=== PATIENT | female | born 1930 | race Hispanic/Latino ===

== ENCOUNTER 2017-09-11 11:21 | Emergency (ER) | payer OTHER, MEDICARE ==
[~2017-09-11 11:21] MED LIST: AEC81 PO; ASPI-555 PO; CARV6.25 PO; FURO20TA4 PO; LEVO50 PO; LEVO500T2 PO; LOSA100T29 PO; MELO-106 PO; METF10004 PO; METO-409 PO; OMEP20CA10 PO; PANT40TA25 PO; SIMV40TA59 PO; SOLI5 PO
[2017-09-11] MEDS ORDERED: ONDANSETRON ODT 4 MG TAB ONE (11:37)
[2017-09-11] MEDS ORDERED: MORPHINE SULFATE 4 MG/1ML SYG ONE (11:38)
== END 2017-09-11 12:56 | disposition home or self-care (01) ==
LOC: EDH 11:21
DX: S30.0XXA Contusion of lower back and pelvis, initial encounter (principal); S09.90XA Unspecified injury of head, initial encounter; E78.5 Hyperlipidemia, unspecified; I25.10 Atherosclerotic heart disease of native coronary artery without angina pectoris; E11.9 Type 2 diabetes mellitus without complications; I10 Essential (primary) hypertension; Z98.890 Other specified postprocedural states; W18.39XA Other fall on same level, initial encounter; Y93.01 Activity, walking, marching and hiking; Y92.89 Other specified places as the place of occurrence of the external cause; Y99.8 Other external cause status
CPT/HCPCS: 70450; 72125; 72128; 72131; 96372; 99284; J2270

== ENCOUNTER 2017-09-13 03:57 | Inpatient (IN) | payer OTHER, MEDICARE ==
[~2017-09-13] VITALS: Ht 162.6 cm
[2017-09-13 04:34] LABS: BASOPHILS % (AUTO) 0.8 % (0.0-5.0); EOSINOPHILS % (AUTO) 0.1 % (0.0-8.0); HEMATOCRIT 30.9 % (36-48); LYMPHOCYTES % (AUTO) 18.9 % (21.0-51.0); MEAN CORPUSCULAR HEMOGLOBIN 32.1 pg (27.0-33.0); MEAN CORPUSCULAR HGB CONC 33.5 g/dL (32.0-36.0); MEAN CORPUSCULAR VOLUME 95.7 fL (79-99); MONOCYTES % (AUTO) 6.5 % (3.0-13.0); NEUTROPHILS % (AUTO) 73.7 % (40.0-77.0); PLATELET COUNT (AUTO) 353 K/uL (130-400); RED BLOOD CELL COUNT(AUTO) 3.23 MIL/uL (4.00-5.50); RED CELL DISTRIBUTION WIDTH 14.9 % (11.0-15.5); WHITE BLOOD COUNT (AUTO) 13.3 K/uL (4.8-10.8)
[2017-09-13 04:35] LABS: APPEARANCE,URINE Clear (CLEAR); BILIRUBIN,URINE Negative (NEGATIVE); COLOR,URINE Yellow (YELLOW); GLUCOSE, URINE (UA) Negative (NEGATIVE); KETONES,URINE Negative (NEGATIVE); LEUKOCYTE ESTERASE ,URINE Trace (NEGATIVE); NITRATE,URINE Negative (NEGATIVE); OCCULT BLOOD,URINE Negative (NEGATIVE); PH,URINE 5.5 (5.0-8.0); PROTEIN,URINE POS 1+ (NEGATIVE); UROBILINOGEN,URINE 0.2 mg/dL (0.2-1.0)
[2017-09-13 04:38] LABS: ACETONE,BLOOD NEGATIVE (NEGATIVE)
[2017-09-13 04:42] LABS: BACTERIA,URINE Rare /HPF (None Seen); CREATININE 5.4 mg/dL (0.5-1.5); MUCUS,URINE Moderate LPF (None Seen); POTASSIUM 5.4 mmol/L (3.5-5.1); RBC,URINE None Seen /HPF (0-1); RENAL EPITHELIAL CELLS,URINE Moderate /HPF (None Seen); SQUAMOUS EPITHELIAL CELL,UR Many /HPF (0-2); TRANSITIONAL EPI CELLS,URINE Moderate /HPF (None Seen); WBC,URINE 0-1 /HPF (0-1)
[2017-09-13 04:46] LABS: INR 1.03 (0.85-1.15); PARTIAL THROMBOPLASTIN TIME 23.9 SEC (26.3-35.5); PROTHROMBIN TIME 10.8 SEC (9.6-11.6)
[2017-09-13 04:47] LABS: ALBUMIN 3.2 g/dL (3.5-5.0); BILIRUBIN,TOTAL 0.3 mg/dL (0.2-1.0); TOTAL PROTEIN, SERUM 7.4 g/dL (6.0-8.3)
[2017-09-13 05:02] LABS: CREATINE KINASE MB 5.5 ng/mL (0.5-3.6); CREATINE KINASE, TOTAL 215 U/L (21-232)
[2017-09-13] MEDS ORDERED: ONDANSETRON HCL MDV 20ML 2 MG/ML VIAL ONE (07:38)
[2017-09-13] MEDS ORDERED: DiphenhydrAMINE HCL 50 MG/ML VIAL IVP PRN (09:45)
[2017-09-13] MEDS ORDERED: ZOLPIDEM TARTRATE 5 MG TAB PO PRN (09:45)
[2017-09-13] MEDS ORDERED: POTASSIUM CHLORIDE 20MEQ/100ML 100 ML IV PRN (09:45)
[2017-09-13] MEDS ORDERED: LIDOCAINE HCL-MPF 1% 2ML VIAL IJ PRN (09:45)
[2017-09-13] MEDS ORDERED: GLUCAGON 1MG KIT 1 MG ML IM PRN (09:45)
[2017-09-13] MEDS ORDERED: DIPHENHYDRAMINE HCL 25 MG CAPSULE PO PRN (09:45)
[2017-09-13] MEDS ORDERED: ONDANSETRON HCL 4 MG/2 ML VIAL IVP PRN (09:45)
[2017-09-13] MEDS ORDERED: NITROGLYCERIN 0.4 MG SL TAB SL PRN (09:45)
[2017-09-13] MEDS ORDERED: GUAIFENESIN-DM 200/20 MG 10 ML PO PRN (09:45)
[2017-09-13] MEDS ORDERED: MAG HYDROX/AL HYDROX/SIMETH ES 30 ML SUSP UDCUP PO PRN (09:45)
[2017-09-13] MEDS ORDERED: DEXTROSE 50%-WATER 50 ML DISP.SYRIN IV PRN (09:45)
[2017-09-13] MEDS ORDERED: POTASSIUM CHLORIDE 10% ELIXIR 20 MEQ/15 ML UDCUP PO PRN (09:45)
[2017-09-13] MEDS ORDERED: ACETAMINOPHEN 325 MG TAB PO PRN ×2 (09:45)
[2017-09-13 09:55] VITALS: BP 98/31
[2017-09-13] MEDS ORDERED: ONDANSETRON HCL MDV 20ML 2 MG/ML VIAL IVP PRN (10:25)
[2017-09-13] MEDS: INSULIN R PO SSI SQ SCH ×3 (10:39→20:13)
[2017-09-13] MEDS: SODIUM CHLORIDE 0.9% 1000ML 1,000 ML IV SCH ×2 (10:45→22:31)
[2017-09-13] MEDS: PANTOPRAZOLE SODIUM 40 MG TABLET.DR PO SCH (10:51)
[2017-09-13] MEDS ORDERED: SULF1TAB42 PO (10:56)
[2017-09-13] MEDS ORDERED: ESCI10TA54 PO (10:56)
[2017-09-13] MEDS ORDERED: LISI40TA4 PO (10:56)
[2017-09-13] MEDS ORDERED: SIMV20TA6 PO (10:56)
[2017-09-13] MEDS ORDERED: FOLI1TAB15 PO (10:56)
[2017-09-13 12:30] LABS: ALBUMIN 2.8 g/dL (3.5-5.0); BILIRUBIN,TOTAL 0.3 mg/dL (0.2-1.0); CREATININE 5.2 mg/dL (0.5-1.5); POTASSIUM 5.1 mmol/L (3.5-5.1); TOTAL PROTEIN, SERUM 6.5 g/dL (6.0-8.3)
[2017-09-13 16:00] VITALS: BP 103/43
[2017-09-13 19:43] VITALS: BP 100/50
[2017-09-13 23:41] VITALS: BP 95/51
[2017-09-14 03:56] LABS: BASOPHILS % (AUTO) 0.6 % (0.0-5.0); EOSINOPHILS % (AUTO) 0.3 % (0.0-8.0); HEMATOCRIT 26.1 % (36-48); LYMPHOCYTES % (AUTO) 16.6 % (21.0-51.0); MEAN CORPUSCULAR HEMOGLOBIN 33.6 pg (27.0-33.0); MEAN CORPUSCULAR HGB CONC 35.5 g/dL (32.0-36.0); MEAN CORPUSCULAR VOLUME 94.6 fL (79-99); MONOCYTES % (AUTO) 7.3 % (3.0-13.0); NEUTROPHILS % (AUTO) 75.2 % (40.0-77.0); PLATELET COUNT (AUTO) 302 K/uL (130-400); RED BLOOD CELL COUNT(AUTO) 2.76 MIL/uL (4.00-5.50); WHITE BLOOD COUNT (AUTO) 9.6 K/uL (4.8-10.8)
[2017-09-14 03:58] VITALS: BP 109/51
[2017-09-14] MEDS: INSULIN R PO SSI SQ SCH ×4 (06:35→21:00)
[2017-09-14] MEDS: PANTOPRAZOLE SODIUM 40 MG TABLET.DR PO SCH (06:39)
[2017-09-14 08:00] VITALS: BP 114/51
[2017-09-14] MEDS: SODIUM CHLORIDE 0.9% 1000ML 1,000 ML IV SCH ×2 (08:45→18:49)
[2017-09-14] MEDS: GUAIFENESIN SUGAR-FREE 100 MG/5 ML UDCUP PO PRN (10:52)
[2017-09-14 11:33] VITALS: BP 133/62
[2017-09-14 12:19] LABS: ALBUMIN 2.7 g/dL (3.5-5.0); BILIRUBIN,TOTAL 0.2 mg/dL (0.2-1.0); CREATININE 5.7 mg/dL (0.5-1.5); POTASSIUM 4.9 mmol/L (3.5-5.1); TOTAL PROTEIN, SERUM 6.2 g/dL (6.0-8.3)
[2017-09-14] MEDS: LACTULOSE 20 GM/30 ML UDCUP PO PRN (13:50)
[2017-09-14 16:00] VITALS: BP 134/59
[2017-09-14 19:48] VITALS: BP 129/66
[2017-09-14 23:31] VITALS: BP 110/52
[2017-09-15 03:19] VITALS: BP 116/58
[2017-09-15 04:30] LABS: HEMATOCRIT 25.6 % (36-48); MEAN CORPUSCULAR HEMOGLOBIN 31.9 pg (27.0-33.0); MEAN CORPUSCULAR HGB CONC 33.9 g/dL (32.0-36.0); PLATELET COUNT (AUTO) 289 K/uL (130-400); RED BLOOD CELL COUNT(AUTO) 2.72 MIL/uL (4.00-5.50); RED CELL DISTRIBUTION WIDTH 14.8 % (11.0-15.5)
[2017-09-15 05:01] LABS: CREATININE 5.3 mg/dL (0.5-1.5); MAGNESIUM 1.5 mg/dL (1.80-2.40); PHOSPHORUS 5.9 mg/dL (2.5-4.9); POTASSIUM 4.3 mmol/L (3.5-5.1); URIC ACID 9.5 mg/dL (2.6-7.2)
[2017-09-15 05:14] LABS: % IRON SATURATION 45.5 % (22-44)
[2017-09-15] MEDS: SODIUM CHLORIDE 0.9% 1000ML 1,000 ML IV SCH ×2 (05:18→08:49)
[2017-09-15] MEDS: PANTOPRAZOLE SODIUM 40 MG TABLET.DR PO SCH (05:35)
[2017-09-15] MEDS: INSULIN R PO SSI SQ SCH ×4 (06:05→21:00)
[2017-09-15 08:00] VITALS: BP 123/54
[2017-09-15] MEDS ORDERED: IPRATROPIUM/ALBUTEROL SULFATE 3 ML SOLUTION IH SCH (10:15)
[2017-09-15] MEDS: IPRATROPIUM/ALBUTEROL SULFATE 3 ML SOLUTION IH SCH ×3 (11:17→23:47)
[2017-09-15 11:39] VITALS: BP 137/67
[2017-09-15 13:16] LABS: APPEARANCE,URINE Clear (CLEAR); BILIRUBIN,URINE Negative (NEGATIVE); COLOR,URINE Yellow (YELLOW); GLUCOSE, URINE (UA) Negative (NEGATIVE); KETONES,URINE Negative (NEGATIVE); LEUKOCYTE ESTERASE ,URINE Negative (NEGATIVE); NITRATE,URINE Negative (NEGATIVE); OCCULT BLOOD,URINE Negative (NEGATIVE); PROTEIN,URINE Trace (NEGATIVE); UROBILINOGEN,URINE 0.2 mg/dL (0.2-1.0)
[2017-09-15 13:28] LABS: BACTERIA,URINE Rare /HPF (None Seen); RBC,URINE 0-1 /HPF (0-1); SQUAMOUS EPITHELIAL CELL,UR Rare /HPF (0-2); WBC,URINE 0-1 /HPF (0-1)
[2017-09-15 13:36] LABS: INR 0.99 (0.85-1.15); PARTIAL THROMBOPLASTIN TIME 23.1 SEC (26.3-35.5); PROTHROMBIN TIME 10.2 SEC (9.6-11.6)
[2017-09-15 16:00] VITALS: BP 134/59
[2017-09-15] MEDS: FOLIC ACID/VITAMIN B COMP W-C 1 MG CAPSULE PO SCH (17:20)
[2017-09-15 19:10] VITALS: BP 150/81
[2017-09-15 23:00] VITALS: BP 145/70
[2017-09-16 03:00] VITALS: BP 149/65
[2017-09-16 03:48] LABS: BASOPHILS % (AUTO) 0.6 % (0.0-5.0); EOSINOPHILS % (AUTO) 2.7 % (0.0-8.0); HEMATOCRIT 23.6 % (36-48); LYMPHOCYTES % (AUTO) 14.8 % (21.0-51.0); MEAN CORPUSCULAR HEMOGLOBIN 34.2 pg (27.0-33.0); MEAN CORPUSCULAR HGB CONC 36.6 g/dL (32.0-36.0); MEAN CORPUSCULAR VOLUME 93.5 fL (79-99); MONOCYTES % (AUTO) 6.4 % (3.0-13.0); NEUTROPHILS % (AUTO) 75.5 % (40.0-77.0); PLATELET COUNT (AUTO) 264 K/uL (130-400); RED BLOOD CELL COUNT(AUTO) 2.53 MIL/uL (4.00-5.50); RED CELL DISTRIBUTION WIDTH 14.8 % (11.0-15.5); WHITE BLOOD COUNT (AUTO) 8.9 K/uL (4.8-10.8)
[2017-09-16 04:03] LABS: ALBUMIN 2.5 g/dL (3.5-5.0); BILIRUBIN,TOTAL 0.4 mg/dL (0.2-1.0); CREATININE 4.3 mg/dL (0.5-1.5); MAGNESIUM 1.3 mg/dL (1.80-2.40); PHOSPHORUS 4.3 mg/dL (2.5-4.9); POTASSIUM 3.8 mmol/L (3.5-5.1); TOTAL PROTEIN, SERUM 5.8 g/dL (6.0-8.3)
[2017-09-16 04:09] LABS: B-TYPE NATRIURETIC PEPTIDE 224 pg/mL (0-100)
[2017-09-16 04:14] LABS: HEMOGLOBIN A1C 5.5 % (4.0-6.0)
[2017-09-16] MEDS: IPRATROPIUM/ALBUTEROL SULFATE 3 ML SOLUTION IH SCH ×4 (06:13→23:30)
[2017-09-16] MEDS: INSULIN R PO SSI SQ SCH ×4 (06:16→20:46)
[2017-09-16] MEDS: PANTOPRAZOLE SODIUM 40 MG TABLET.DR PO SCH (06:17)
[2017-09-16 08:00] VITALS: BP 142/66
[2017-09-16 08:19] LABS: HEPATITIS A ANTIBODY IGM Negative (Negative); HEPATITIS B CORE IGM Negative (Negative); HEPATITIS Bs ANTIGEN SCREEN P Negative (Negative)
[2017-09-16] MEDS: FOLIC ACID/VITAMIN B COMP W-C 1 MG CAPSULE PO SCH (11:26)
[2017-09-16 12:00] VITALS: BP 142/68
[2017-09-16 16:00] VITALS: BP 141/45
[2017-09-16 19:00] VITALS: BP 177/75
[2017-09-16] MEDS: CLONIDINE HCL 0.1 MG TABLET PO PRN (20:48)
[2017-09-16 23:00] VITALS: BP 155/77
[2017-09-17 03:00] VITALS: BP 157/86
[2017-09-17 03:52] LABS: BASOPHILS % (AUTO) 0.6 % (0.0-5.0); EOSINOPHILS % (AUTO) 2.7 % (0.0-8.0); HEMATOCRIT 26.9 % (36-48); MEAN CORPUSCULAR HEMOGLOBIN 32.3 pg (27.0-33.0); MEAN CORPUSCULAR HGB CONC 34.7 g/dL (32.0-36.0); MONOCYTES % (AUTO) 6.9 % (3.0-13.0); NEUTROPHILS % (AUTO) 74.8 % (40.0-77.0); PLATELET COUNT (AUTO) 281 K/uL (130-400); RED BLOOD CELL COUNT(AUTO) 2.89 MIL/uL (4.00-5.50); RED CELL DISTRIBUTION WIDTH 14.7 % (11.0-15.5); WHITE BLOOD COUNT (AUTO) 9.6 K/uL (4.8-10.8)
[2017-09-17 04:04] LABS: CREATININE 2.9 mg/dL (0.5-1.5); POTASSIUM 3.9 mmol/L (3.5-5.1)
[2017-09-17] MEDS: IPRATROPIUM/ALBUTEROL SULFATE 3 ML SOLUTION IH SCH ×4 (06:34→22:14)
[2017-09-17] MEDS: INSULIN R PO SSI SQ SCH ×4 (06:42→21:00)
[2017-09-17 07:45] LABS: ALBUMIN 2.6 g/dL (3.5-5.0); BILIRUBIN,TOTAL 0.4 mg/dL (0.2-1.0); MAGNESIUM 1.2 mg/dL (1.80-2.40); TOTAL PROTEIN, SERUM 6.2 g/dL (6.0-8.3)
[2017-09-17 08:00] VITALS: BP 157/76
[2017-09-17] MEDS: FOLIC ACID/VITAMIN B COMP W-C 1 MG CAPSULE PO SCH (10:09)
[2017-09-17] MEDS: PANTOPRAZOLE SODIUM 40 MG TABLET.DR PO SCH (10:14)
[2017-09-17 12:00] VITALS: BP 136/75
[2017-09-17 16:00] VITALS: BP 140/70
[2017-09-17] MEDS: MAGNESIUM 2GM PREMIX 50ML 50 ML IV SCH (16:38)
[2017-09-17] MEDS: LACTULOSE 20 GM/30 ML UDCUP PO PRN (16:57)
[2017-09-17 19:15] VITALS: BP 143/69
[2017-09-17 23:15] VITALS: BP 137/62
[2017-09-18] VITALS (7 sets, daily range): BP systolic 122–150; BP diastolic 59–76
[2017-09-18] MEDS: IPRATROPIUM/ALBUTEROL SULFATE 3 ML SOLUTION IH SCH ×6 (02:20→22:28)
[2017-09-18 03:44] LABS: BASOPHILS % (AUTO) 0.9 % (0.0-5.0); EOSINOPHILS % (AUTO) 3.3 % (0.0-8.0); HEMATOCRIT 25.3 % (36-48); LYMPHOCYTES % (AUTO) 16.9 % (21.0-51.0); MEAN CORPUSCULAR HEMOGLOBIN 33.2 pg (27.0-33.0); MEAN CORPUSCULAR HGB CONC 35.5 g/dL (32.0-36.0); MEAN CORPUSCULAR VOLUME 93.5 fL (79-99); NEUTROPHILS % (AUTO) 71.9 % (40.0-77.0); PLATELET COUNT (AUTO) 263 K/uL (130-400); RED CELL DISTRIBUTION WIDTH 14.7 % (11.0-15.5); WHITE BLOOD COUNT (AUTO) 9.7 K/uL (4.8-10.8)
[2017-09-18] MEDS: MAGNESIUM 2GM PREMIX 50ML 50 ML IV SCH (05:47)
[2017-09-18] MEDS: PANTOPRAZOLE SODIUM 40 MG TABLET.DR PO SCH (06:06)
[2017-09-18] MEDS: INSULIN R PO SSI SQ SCH ×4 (06:26→20:29)
[2017-09-18] MEDS: FOLIC ACID/VITAMIN B COMP W-C 1 MG CAPSULE PO SCH (08:20)
[2017-09-18] MEDS: LACTULOSE 20 GM/30 ML UDCUP PO PRN (11:51)
[2017-09-19] MEDS: IPRATROPIUM/ALBUTEROL SULFATE 3 ML SOLUTION IH SCH ×6 (01:38→22:00)
[2017-09-19 03:56] VITALS: BP 135/58
[2017-09-19 06:15] LABS: ALBUMIN 2.5 g/dL (3.5-5.0); BILIRUBIN,TOTAL 0.4 mg/dL (0.2-1.0); CREATININE 1.8 mg/dL (0.5-1.5); MAGNESIUM 1.8 mg/dL (1.80-2.40); POTASSIUM 3.5 mmol/L (3.5-5.1); TOTAL PROTEIN, SERUM 6.2 g/dL (6.0-8.3)
[2017-09-19] MEDS: PANTOPRAZOLE SODIUM 40 MG TABLET.DR PO SCH (06:15)
[2017-09-19] MEDS: INSULIN R PO SSI SQ SCH ×4 (06:53→20:21)
[2017-09-19 08:00] VITALS: BP 145/62
[2017-09-19] MEDS: FOLIC ACID/VITAMIN B COMP W-C 1 MG CAPSULE PO SCH (08:34)
[2017-09-19 12:00] VITALS: BP 126/55
[2017-09-19 16:00] VITALS: BP 145/74
[2017-09-19 19:39] VITALS: BP 138/58
[2017-09-19 23:29] VITALS: BP 140/70
[2017-09-20] MEDS: IPRATROPIUM/ALBUTEROL SULFATE 3 ML SOLUTION IH SCH ×6 (02:07→22:07)
[2017-09-20 04:10] VITALS: BP 150/74
[2017-09-20 05:36] LABS: BASOPHILS % (AUTO) 0.8 % (0.0-5.0); EOSINOPHILS % (AUTO) 4.2 % (0.0-8.0); HEMATOCRIT 24.1 % (36-48); LYMPHOCYTES % (AUTO) 15.4 % (21.0-51.0); MEAN CORPUSCULAR HEMOGLOBIN 33.4 pg (27.0-33.0); MEAN CORPUSCULAR HGB CONC 35.3 g/dL (32.0-36.0); MEAN CORPUSCULAR VOLUME 94.6 fL (79-99); MONOCYTES % (AUTO) 8.2 % (3.0-13.0); NEUTROPHILS % (AUTO) 71.4 % (40.0-77.0); PLATELET COUNT (AUTO) 282 K/uL (130-400); RED BLOOD CELL COUNT(AUTO) 2.55 MIL/uL (4.00-5.50); RED CELL DISTRIBUTION WIDTH 14.7 % (11.0-15.5); WHITE BLOOD COUNT (AUTO) 9.7 K/uL (4.8-10.8)
[2017-09-20 05:56] LABS: ALBUMIN 2.4 g/dL (3.5-5.0); BILIRUBIN,TOTAL 0.4 mg/dL (0.2-1.0); CREATININE 1.7 mg/dL (0.5-1.5); POTASSIUM 3.3 mmol/L (3.5-5.1)
[2017-09-20] MEDS: PANTOPRAZOLE SODIUM 40 MG TABLET.DR PO SCH (06:48)
[2017-09-20] MEDS: POTASSIUM CHLORIDE 20 MEQ ERTAB PO PRN ×2 (06:57→23:16)
[2017-09-20 07:00] VITALS: BP 151/60
[2017-09-20] MEDS: INSULIN R PO SSI SQ SCH ×3 (07:30→21:00)
[2017-09-20] MEDS: FOLIC ACID/VITAMIN B COMP W-C 1 MG CAPSULE PO SCH (08:08)
[2017-09-20 11:00] VITALS: BP_SYST 133; BP_SYST 151; BP_DIAS 60; BP_DIAS 71
[2017-09-20 16:00] VITALS: BP 174/81
[2017-09-20 20:00] VITALS: BP 151/62
[2017-09-20] MEDS: LACTULOSE 20 GM/30 ML UDCUP PO PRN (23:39)
[2017-09-20 23:49] VITALS: BP 160/67
[2017-09-20] MEDS: CLONIDINE HCL 0.1 MG TABLET PO PRN (23:58)
[2017-09-21] MEDS: IPRATROPIUM/ALBUTEROL SULFATE 3 ML SOLUTION IH SCH ×6 (02:55→22:06)
[2017-09-21] MEDS: POTASSIUM CHLORIDE 20 MEQ ERTAB PO PRN ×3 (03:00→11:36)
[2017-09-21 03:49] VITALS: BP 128/62
[2017-09-21 05:09] LABS: HEMATOCRIT 25.3 % (36-48); MEAN CORPUSCULAR HEMOGLOBIN 32.1 pg (27.0-33.0); MEAN CORPUSCULAR HGB CONC 34.3 g/dL (32.0-36.0); MEAN CORPUSCULAR VOLUME 93.5 fL (79-99); PLATELET COUNT (AUTO) 294 K/uL (130-400); RED CELL DISTRIBUTION WIDTH 14.5 % (11.0-15.5); WHITE BLOOD COUNT (AUTO) 9.3 K/uL (4.8-10.8)
[2017-09-21 05:21] LABS: CREATININE 1.6 mg/dL (0.5-1.5); MAGNESIUM 1.5 mg/dL (1.80-2.40); POTASSIUM 3.7 mmol/L (3.5-5.1)
[2017-09-21] MEDS: INSULIN R PO SSI SQ SCH ×4 (06:43→20:50)
[2017-09-21 07:52] VITALS: BP 180/73
[2017-09-21] MEDS: FOLIC ACID/VITAMIN B COMP W-C 1 MG CAPSULE PO SCH (09:18)
[2017-09-21] MEDS: PANTOPRAZOLE SODIUM 40 MG TABLET.DR PO SCH (09:18)
[2017-09-21] MEDS: CLONIDINE HCL 0.1 MG TABLET PO PRN (09:23)
[2017-09-21 11:35] VITALS: BP 118/59
[2017-09-21] MEDS: MAGNESIUM 2GM PREMIX 50ML 50 ML IV SCH ×2 (11:36→20:50)
[2017-09-21 16:37] VITALS: BP 136/70
[2017-09-21] MEDS: LACTULOSE 20 GM/30 ML UDCUP PO PRN (17:54)
[2017-09-21 20:00] VITALS: BP 136/75
[2017-09-21 23:43] VITALS: BP 142/65
[2017-09-22] MEDS: IPRATROPIUM/ALBUTEROL SULFATE 3 ML SOLUTION IH SCH ×4 (03:04→13:34)
[2017-09-22 03:59] LABS: BASOPHILS % (AUTO) 0.9 % (0.0-5.0); EOSINOPHILS % (AUTO) 3.5 % (0.0-8.0); HEMATOCRIT 24.4 % (36-48); LYMPHOCYTES % (AUTO) 19.9 % (21.0-51.0); MEAN CORPUSCULAR HEMOGLOBIN 32.8 pg (27.0-33.0); MEAN CORPUSCULAR HGB CONC 34.7 g/dL (32.0-36.0); MEAN CORPUSCULAR VOLUME 94.5 fL (79-99); MONOCYTES % (AUTO) 10.9 % (3.0-13.0); NEUTROPHILS % (AUTO) 64.8 % (40.0-77.0); PLATELET COUNT (AUTO) 294 K/uL (130-400); RED BLOOD CELL COUNT(AUTO) 2.59 MIL/uL (4.00-5.50); RED CELL DISTRIBUTION WIDTH 15.1 % (11.0-15.5); WHITE BLOOD COUNT (AUTO) 9.1 K/uL (4.8-10.8)
[2017-09-22 04:00] VITALS: BP 143/75
[2017-09-22 04:11] LABS: CREATININE 1.6 mg/dL (0.5-1.5); MAGNESIUM 2.5 mg/dL (1.80-2.40); POTASSIUM 3.9 mmol/L (3.5-5.1)
[2017-09-22] MEDS: INSULIN R PO SSI SQ SCH ×3 (06:52→16:30)
[2017-09-22 07:49] VITALS: BP 133/71
[2017-09-22] MEDS: PANTOPRAZOLE SODIUM 40 MG TABLET.DR PO SCH (10:15)
[2017-09-22] MEDS: FOLIC ACID/VITAMIN B COMP W-C 1 MG CAPSULE PO SCH (10:15)
[2017-09-22] MEDS: LACTULOSE 20 GM/30 ML UDCUP PO PRN (10:16)
[2017-09-22] MEDS: GUAIFENESIN SUGAR-FREE 100 MG/5 ML UDCUP PO PRN (10:27)
[2017-09-22 11:06] VITALS: BP 133/60
[2017-09-22 16:50] VITALS: BP 132/72
== END 2017-09-22 18:15 | disposition hospice, home (50) | DRG 689 ==
LOC: EDH 03:57 → EDHIP 07:00 → OBSVTOIN 07:00 → 3BH 09:27
PROVIDERS: ADMIT Family Medicine; ATTEND Family Medicine
DX: N39.0 Urinary tract infection, site not specified (principal); N17.0 Acute kidney failure with tubular necrosis; I12.9 Hypertensive chronic kidney disease with stage 1 through stage 4 chronic kidney disease, or unspecified chronic kidney disease; E11.21 Type 2 diabetes mellitus with diabetic nephropathy; E11.51 Type 2 diabetes mellitus with diabetic peripheral angiopathy without gangrene; E11.22 Type 2 diabetes mellitus with diabetic chronic kidney disease; N18.9 Chronic kidney disease, unspecified; E78.5 Hyperlipidemia, unspecified; D64.9 Anemia, unspecified; E03.9 Hypothyroidism, unspecified; I25.10 Atherosclerotic heart disease of native coronary artery without angina pectoris; E87.6 Hypokalemia; E83.42 Hypomagnesemia; Z87.440 Personal history of urinary (tract) infections; Z90.710 Acquired absence of both cervix and uterus; Z95.0 Presence of cardiac pacemaker
CPT/HCPCS: 36415; 70450; 71045; 72125; 72128; 72131; 76770; 80048; 80053; 80061; 80074; 81001; 82009; 82150; 82270; 82550; 82553; 82728; 82948; 83036; 83540; 83550; 83690; 83735; 83880; 84100; 84484; 84550; 85025; 85027; 85610; 85730; 86038; 86160; 87088; 93005; 94640; 94664; 96372; 97039; J2270; J3475; J7030

== ENCOUNTER 2017-10-29 14:56 | Inpatient (IN) | payer OTHER, MEDICARE ==
[~2017-10-29] VITALS: Ht 160 cm; Wt 68.0 kg
[~2017-10-29 14:56] MED LIST changes: -AEC81 PO; +ESCI10TA54 PO; +FOLI1TAB15 PO; -FURO20TA4 PO; -LEVO500T2 PO; -LOSA100T29 PO; -MELO-106 PO; -METF10004 PO; -METO-409 PO; -OMEP20CA10 PO; +SIMV20TA6 PO; -SIMV40TA59 PO; -SOLI5 PO
[2017-10-29 15:52] LABS: BASOPHILS % (AUTO) 1.2 % (0.0-5.0); EOSINOPHILS % (AUTO) 0.3 % (0.0-8.0); HEMATOCRIT 31.7 % (36-48); LYMPHOCYTES % (AUTO) 22.4 % (21.0-51.0); MEAN CORPUSCULAR HEMOGLOBIN 31.2 pg (27.0-33.0); MEAN CORPUSCULAR HGB CONC 33.2 g/dL (32.0-36.0); MEAN CORPUSCULAR VOLUME 93.9 fL (79-99); MONOCYTES % (AUTO) 4.2 % (3.0-13.0); NEUTROPHILS % (AUTO) 71.9 % (40.0-77.0); PLATELET COUNT (AUTO) 342 K/uL (130-400); RED BLOOD CELL COUNT(AUTO) 3.37 MIL/uL (4.00-5.50); RED CELL DISTRIBUTION WIDTH 14.9 % (11.0-15.5)
[2017-10-29 16:01] LABS: CREATININE 4.7 mg/dL (0.5-1.5); POTASSIUM 5.8 mmol/L (3.5-5.1)
[2017-10-29 16:06] LABS: ALBUMIN 3.4 g/dL (3.5-5.0); BILIRUBIN,DIRECT 0.1 mg/dL (0.0-0.3); BILIRUBIN,TOTAL 0.3 mg/dL (0.2-1.0); TOTAL PROTEIN, SERUM 7.5 g/dL (6.0-8.3)
[2017-10-29] MEDS ORDERED: ONDANSETRON HCL MDV 20ML 2 MG/ML VIAL ONE (16:09)
[2017-10-29] MEDS ORDERED: SODIUM CHLORIDE 0.9% 500ML 500 ML IV ONE (16:09)
[2017-10-29 17:48] LABS: APPEARANCE,URINE Clear (CLEAR); BILIRUBIN,URINE Negative (NEGATIVE); COLOR,URINE Yellow (YELLOW); GLUCOSE, URINE (UA) Negative (NEGATIVE); KETONES,URINE Negative (NEGATIVE); LEUKOCYTE ESTERASE ,URINE Negative (NEGATIVE); NITRATE,URINE Negative (NEGATIVE); OCCULT BLOOD,URINE Negative (NEGATIVE); PROTEIN,URINE POS 1+ (NEGATIVE); UROBILINOGEN,URINE 0.2 mg/dL (0.2-1.0)
[2017-10-29 18:00] LABS: BACTERIA,URINE None Seen /HPF (None Seen); MUCUS,URINE Few LPF (None Seen); RBC,URINE None Seen /HPF (0-1); SQUAMOUS EPITHELIAL CELL,UR 0-2 /HPF (0-2); WBC,URINE None Seen /HPF (0-1)
[2017-10-29 21:05] VITALS: BP 123/59
[2017-10-29 23:38] VITALS: BP 99/46
[2017-10-30] MEDS ORDERED: METF10004 PO (00:48)
[2017-10-30] MEDS ORDERED: ONDA4SOL PO (00:50)
[2017-10-30] MEDS ORDERED: SULF1TAB42 PO (00:51)
[2017-10-30 03:42] VITALS: BP 103/47
[2017-10-30 05:02] LABS: MEAN CORPUSCULAR HEMOGLOBIN 32.3 pg (27.0-33.0); MEAN CORPUSCULAR HGB CONC 34.7 g/dL (32.0-36.0); MEAN CORPUSCULAR VOLUME 93.1 fL (79-99); PLATELET COUNT (AUTO) 311 K/uL (130-400); RED BLOOD CELL COUNT(AUTO) 3.11 MIL/uL (4.00-5.50); RED CELL DISTRIBUTION WIDTH 14.7 % (11.0-15.5); WHITE BLOOD COUNT (AUTO) 8.9 K/uL (4.8-10.8)
[2017-10-30 05:19] LABS: ALBUMIN 3.1 g/dL (3.5-5.0); BILIRUBIN,TOTAL 0.2 mg/dL (0.2-1.0); CREATININE 4.6 mg/dL (0.5-1.5); POTASSIUM 5.8 mmol/L (3.5-5.1); TOTAL PROTEIN, SERUM 6.7 g/dL (6.0-8.3)
[2017-10-30 08:00] VITALS: BP 109/46
[2017-10-30 11:00] VITALS: BP 114/69
[2017-10-30 16:00] VITALS: BP 96/50
[2017-10-30] MEDS: ASPIRIN 325MG EC TAB 325 MG TABLET.DR PO SCH (19:14)
[2017-10-30 19:55] VITALS: BP 100/50
[2017-10-30] MEDS: ATORVASTATIN CALCIUM 10 MG TABLET PO SCH (20:15)
[2017-10-30] MEDS: CARVEDILOL 6.25 MG TABLET PO SCH (20:16)
[2017-10-30] MEDS: SODIUM CHLORIDE 0.9% 1000ML 1,000 ML IV SCH (20:17)
[2017-10-30 23:42] VITALS: BP 118/54
[2017-10-31] MEDS: SODIUM CHLORIDE 0.9% 1000ML 1,000 ML IV SCH ×3 (02:29→23:28)
[2017-10-31 04:00] VITALS: BP 123/56
[2017-10-31] MEDS: LEVOTHYROXINE 50 MCG TABLET PO SCH (06:00)
[2017-10-31 07:12] LABS: ALBUMIN 2.8 g/dL (3.5-5.0); BILIRUBIN,TOTAL 0.3 mg/dL (0.2-1.0); CREATININE 4.9 mg/dL (0.5-1.5); POTASSIUM 4.8 mmol/L (3.5-5.1); TOTAL PROTEIN, SERUM 6.2 g/dL (6.0-8.3)
[2017-10-31 08:00] VITALS: BP 115/53
[2017-10-31] MEDS ORDERED: METFORMIN HCL 500 MG TABLET PO SCH (08:00)
[2017-10-31 11:00] VITALS: BP 109/53
[2017-10-31] MEDS: CITALOPRAM 20 MG TABLET PO SCH (11:06)
[2017-10-31] MEDS: ASPIRIN 325MG EC TAB 325 MG TABLET.DR PO SCH (11:06)
[2017-10-31] MEDS: CARVEDILOL 6.25 MG TABLET PO SCH ×2 (11:07→20:24)
[2017-10-31] MEDS: PANTOPRAZOLE SODIUM 40 MG TABLET.DR PO SCH (11:07)
[2017-10-31] MEDS: FOLIC ACID 1 MG TABLET PO SCH (11:07)
[2017-10-31 16:00] VITALS: BP 103/55
[2017-10-31 19:37] VITALS: BP 110/53
[2017-10-31] MEDS: ATORVASTATIN CALCIUM 10 MG TABLET PO SCH (20:23)
[2017-10-31 23:54] VITALS: BP 100/49
[2017-11-01 04:00] VITALS: BP 116/63
[2017-11-01] MEDS: LEVOTHYROXINE 50 MCG TABLET PO SCH (05:33)
[2017-11-01 07:04] LABS: BASOPHILS % (AUTO) 0.7 % (0.0-5.0); EOSINOPHILS % (AUTO) 2.8 % (0.0-8.0); HEMATOCRIT 26.4 % (36-48); MEAN CORPUSCULAR HEMOGLOBIN 31.7 pg (27.0-33.0); MEAN CORPUSCULAR VOLUME 93.2 fL (79-99); MONOCYTES % (AUTO) 5.8 % (3.0-13.0); NEUTROPHILS % (AUTO) 69.7 % (40.0-77.0); PLATELET COUNT (AUTO) 255 K/uL (130-400); RED BLOOD CELL COUNT(AUTO) 2.84 MIL/uL (4.00-5.50); RED CELL DISTRIBUTION WIDTH 14.8 % (11.0-15.5)
[2017-11-01 08:00] VITALS: BP 137/69
[2017-11-01 08:24] LABS: ALBUMIN 2.6 g/dL (3.5-5.0); BILIRUBIN,TOTAL 0.2 mg/dL (0.2-1.0); CREATININE 4.2 mg/dL (0.5-1.5); POTASSIUM 4.6 mmol/L (3.5-5.1); TOTAL PROTEIN, SERUM 5.8 g/dL (6.0-8.3)
[2017-11-01] MEDS: FOLIC ACID 1 MG TABLET PO SCH (08:46)
[2017-11-01] MEDS: CARVEDILOL 6.25 MG TABLET PO SCH ×2 (08:46→20:36)
[2017-11-01] MEDS: ASPIRIN 325MG EC TAB 325 MG TABLET.DR PO SCH (08:46)
[2017-11-01] MEDS: PANTOPRAZOLE SODIUM 40 MG TABLET.DR PO SCH (08:46)
[2017-11-01] MEDS: CITALOPRAM 20 MG TABLET PO SCH (08:46)
[2017-11-01 11:00] VITALS: BP 114/58
[2017-11-01 16:00] VITALS: BP 112/60
[2017-11-01] MEDS: SODIUM CHLORIDE 0.9% 1000ML 1,000 ML IV SCH (17:50)
[2017-11-01 19:10] VITALS: BP 119/59
[2017-11-01] MEDS: ATORVASTATIN CALCIUM 10 MG TABLET PO SCH (20:35)
[2017-11-01 23:20] VITALS: BP 127/65
[2017-11-02 04:00] VITALS: BP 129/65
[2017-11-02] MEDS: SODIUM CHLORIDE 0.9% 1000ML 1,000 ML IV SCH (05:49)
[2017-11-02] MEDS: LEVOTHYROXINE 50 MCG TABLET PO SCH (05:49)
[2017-11-02 05:51] LABS: BASOPHILS % (AUTO) 0.8 % (0.0-5.0); EOSINOPHILS % (AUTO) 3.1 % (0.0-8.0); HEMATOCRIT 26.7 % (36-48); LYMPHOCYTES % (AUTO) 19.5 % (21.0-51.0); MEAN CORPUSCULAR HEMOGLOBIN 31.5 pg (27.0-33.0); MEAN CORPUSCULAR HGB CONC 33.9 g/dL (32.0-36.0); MONOCYTES % (AUTO) 7.4 % (3.0-13.0); NEUTROPHILS % (AUTO) 69.2 % (40.0-77.0); PLATELET COUNT (AUTO) 242 K/uL (130-400); RED BLOOD CELL COUNT(AUTO) 2.87 MIL/uL (4.00-5.50); RED CELL DISTRIBUTION WIDTH 14.8 % (11.0-15.5)
[2017-11-02 06:11] LABS: ALBUMIN 2.7 g/dL (3.5-5.0); BILIRUBIN,TOTAL 0.2 mg/dL (0.2-1.0); CREATININE 2.9 mg/dL (0.5-1.5); POTASSIUM 4.5 mmol/L (3.5-5.1)
[2017-11-02 08:00] VITALS: BP 151/61
[2017-11-02] MEDS: FOLIC ACID 1 MG TABLET PO SCH (08:19)
[2017-11-02] MEDS: ASPIRIN 325MG EC TAB 325 MG TABLET.DR PO SCH (08:19)
[2017-11-02] MEDS: CITALOPRAM 20 MG TABLET PO SCH (08:19)
[2017-11-02] MEDS: CARVEDILOL 6.25 MG TABLET PO SCH (08:19)
[2017-11-02] MEDS: PANTOPRAZOLE SODIUM 40 MG TABLET.DR PO SCH (08:20)
[2017-11-02 12:00] VITALS: BP 134/66
[2017-11-02 16:00] VITALS: BP 133/76
== END 2017-11-02 18:25 | disposition home or self-care (01) | DRG 684 ==
LOC: EDH 14:56 → EDHIP 17:50 → OBSVTOIN 17:50 → 3DH 22:04
PROVIDERS: ADMIT Family Medicine; ATTEND Family Medicine
DX: N17.9 Acute kidney failure, unspecified (principal); E11.22 Type 2 diabetes mellitus with diabetic chronic kidney disease; E86.0 Dehydration; I12.9 Hypertensive chronic kidney disease with stage 1 through stage 4 chronic kidney disease, or unspecified chronic kidney disease; E78.5 Hyperlipidemia, unspecified; N18.9 Chronic kidney disease, unspecified; I25.10 Atherosclerotic heart disease of native coronary artery without angina pectoris
CPT/HCPCS: 36415; 70450; 74176; 80048; 80053; 80076; 81001; 82550; 82948; 83690; 84484; 85025; 85027; 87040; 93005; 97039; J7030; J7040

== ENCOUNTER → 2018-06-02 | Outpatient (CLI) | payer OTHER, MEDICARE ==
[~2018-06-02] MED LIST changes: +METF-446 PO; +ONDA4SOL PO
== END | disposition home or self-care (01) ==
LOC: SHCH 11:20
PROVIDERS: ATTEND Internal Medicine Cardiovascular Disease
DX: I34.0 Nonrheumatic mitral (valve) insufficiency (principal); I25.10 Atherosclerotic heart disease of native coronary artery without angina pectoris; E11.9 Type 2 diabetes mellitus without complications; I10 Essential (primary) hypertension; Z95.0 Presence of cardiac pacemaker
CPT/HCPCS: 93306

== ENCOUNTER 2018-09-19 16:41 | Inpatient (IN) | payer OTHER, MEDICARE ==
[~2018-09-19] VITALS: Ht 149.9 cm; Wt 72.6 kg
[2018-09-19 17:44] LABS: BASOPHILS % (AUTO) 1.2 % (0.0-5.0); EOSINOPHILS % (AUTO) 2.7 % (0.0-8.0); HEMATOCRIT 23.2 % (36-48); MEAN CORPUSCULAR HEMOGLOBIN 27.7 pg (27.0-33.0); MEAN CORPUSCULAR HGB CONC 32.8 g/dL (32.0-36.0); MEAN CORPUSCULAR VOLUME 84.5 fL (79-99); MONOCYTES % (AUTO) 9.7 % (3.0-13.0); NEUTROPHILS % (AUTO) 62.4 % (40.0-77.0); NUCLEATED RED BLOOD CELLS 0.1 % (0.0-0.19); PLATELET COUNT (AUTO) 346 K/uL (130-400); RED BLOOD CELL COUNT(AUTO) 2.74 MIL/uL (4.00-5.50); RED CELL DISTRIBUTION WIDTH 15.4 % (11.0-15.5); WHITE BLOOD COUNT (AUTO) 8.5 K/uL (4.8-10.8)
[2018-09-19 18:00] LABS: CREATININE 1.7 mg/dL (0.5-1.5); POTASSIUM 4.6 mmol/L (3.5-5.1)
[2018-09-19 18:02] LABS: ALBUMIN 3.1 g/dL (3.5-5.0); BILIRUBIN,TOTAL 0.3 mg/dL (0.2-1.0); TOTAL PROTEIN, SERUM 6.9 g/dL (6.0-8.3)
[2018-09-19 18:22] LABS: APPEARANCE,URINE Clear (CLEAR); BILIRUBIN,URINE Negative (NEGATIVE); COLOR,URINE Yellow (YELLOW); GLUCOSE, URINE (UA) Negative (NEGATIVE); KETONES,URINE Negative (NEGATIVE); LEUKOCYTE ESTERASE ,URINE Trace (NEGATIVE); NITRATE,URINE Negative (NEGATIVE); OCCULT BLOOD,URINE Negative (NEGATIVE); PH,URINE 5.5 (5.0-8.0); PROTEIN,URINE Negative (NEGATIVE)
[2018-09-19] MEDS ORDERED: GLUCAGON 1MG KIT 1 MG ML IM PRN (19:00)
[2018-09-19] MEDS ORDERED: ACETAMINOPHEN 325 MG TAB PO PRN ×2 (19:00)
[2018-09-19] MEDS ORDERED: ONDANSETRON HCL 4 MG/2 ML VIAL IV PRN (19:00)
[2018-09-19] MEDS ORDERED: DEXTROSE 50%-WATER 50 ML DISP.SYRIN IV PRN (19:00)
[2018-09-19 19:11] LABS: RBC,URINE 0-1 /HPF (0-1)
[2018-09-19 19:12] LABS: BACTERIA,URINE Rare /HPF (None Seen); SQUAMOUS EPITHELIAL CELL,UR Few /HPF (0-2)
[2018-09-19 19:20] LABS: HEMOGLOBIN A1C 6.1 % (4.0-6.0)
[2018-09-19] MEDS ORDERED: MAGNESIUM 2GM PREMIX 50ML 50 ML IV PRN (20:45)
[2018-09-19 20:49] LABS: % IRON SATURATION 4.9 % (22-44)
[2018-09-19] MEDS: INSULIN HUMULIN R 100 UNIT/ML 3ML SQ SCH (22:00)
--- NOTE | 2018-09-19 22:00 | NUR ---
Admission note: Received pt from ER via stretcher. Fully awake and responsive. Daughter was with the pt. Placed in bed comfortably. VS checked and recorded. Assessment done. Oriented to room and use of call light. Policies and procedures explained. Verbalized understanding. Orders checked and carried out. Plan of care initiated. Hooked to TELE with result of paced rhythm. Observed for any unusual changes. Cared for and needs attended. Denies feeling of discomfort. No apparent distress noted.
[2018-09-19 22:10] VITALS: BP_SYST 134; BP_SYST 151; BP_SYST 152; BP_DIAS 78; BP_DIAS 79
[2018-09-19 22:57] LABS: CREATINE KINASE, TOTAL 75 U/L (21-232); MYOGLOBIN 82 ng/mL (10-92)
[2018-09-19] MEDS: SODIUM CHLORIDE 0.9% 1000ML 1,000 ML IV SCH (23:03)
[2018-09-19] MEDS ORDERED: FOLI1TAB15 PO (23:46)
[2018-09-19] MEDS ORDERED: MAGN400T53 PO (23:46)
[2018-09-19] MEDS ORDERED: CARV12.511 PO (23:46)
[2018-09-19] MEDS ORDERED: LEVO50 PO (23:48)
[2018-09-19 23:54] LABS: HEMATOCRIT 27.2 % (36-48)
[2018-09-20] VITALS (7 sets, daily range): BP systolic 123–166; BP diastolic 55–89
[2018-09-20 00:36] LABS: CREATINE KINASE, TOTAL 63 U/L (21-232); MYOGLOBIN 77 ng/mL (10-92); TROPONIN I < 0.04 ng/mL (0.00-0.06)
[2018-09-20 04:31] LABS: HEMATOCRIT 26.1 % (36-48); MEAN CORPUSCULAR HEMOGLOBIN 28.8 pg (27.0-33.0); MEAN CORPUSCULAR VOLUME 84.8 fL (79-99); PLATELET COUNT (AUTO) 321 K/uL (130-400); RED BLOOD CELL COUNT(AUTO) 3.08 MIL/uL (4.00-5.50); WHITE BLOOD COUNT (AUTO) 9.7 K/uL (4.8-10.8)
[2018-09-20 04:43] LABS: EOSINOPHILS % (MANUAL) 3 % (1-6); LYMPHOCYTES % (MANUAL) 15 % (22-44); MAN.DIFF COMMENT-IMPRESSION MANUAL DIFFERENTIAL; MONOCYTES % (MANUAL) 8 % (2-9); SEGMENTED NEUTROPHILS % 74 % (40-70)
[2018-09-20 04:50] LABS: ALANINE AMINOTRANSFERASE 10 U/L (12-78); ASPARTATE AMINOTRANSFERASE 12 U/L (10-37); BILIRUBIN,TOTAL 0.6 mg/dL (0.2-1.0); CARBON DIOXIDE 26 mmol/L (21-32); CHLORIDE 104 mmol/L (101-111); CREATINE KINASE, TOTAL 54 U/L (21-232); CREATININE 1.6 mg/dL (0.5-1.5); GLOMERULAR FILTR. RATE CALC 32 mL/min (>60); GLUCOSE,RANDOM 107 mg/dL (70-105); MYOGLOBIN 64 ng/mL (10-92); POTASSIUM 3.5 mmol/L (3.5-5.1); SODIUM SERUM 141 mmol/L (136-145); TOTAL PROTEIN, SERUM 6.5 g/dL (6.0-8.3); TROPONIN I < 0.04 ng/mL (0.00-0.06); UREA NITROGEN, BLOOD 24 mg/dL (7-18)
[2018-09-20] MEDS: SODIUM CHLORIDE 0.9% 1000ML 1,000 ML IV SCH ×2 (04:51→11:12)
[2018-09-20] MEDS: LEVOTHYROXINE 50 MCG TABLET PO SCH (06:37)
[2018-09-20] MEDS: INSULIN HUMULIN R 100 UNIT/ML 3ML SQ SCH ×4 (06:56→20:56)
[2018-09-20] MEDS: MAGNESIUM OXIDE 400 MG TABLET PO SCH (09:00)
[2018-09-20] MEDS: CARVEDILOL 12.5 MG TABLET PO SCH ×2 (09:35→20:55)
[2018-09-20] MEDS: CITALOPRAM 20 MG TABLET PO SCH (09:35)
[2018-09-20] MEDS: PANTOPRAZOLE SODIUM 40 MG TABLET.DR PO SCH (09:35)
[2018-09-20] MEDS: METFORMIN HCL 500 MG TABLET PO SCH ×2 (09:35→16:41)
[2018-09-20] MEDS: FAMOTIDINE 20MG TAB 20 MG TAB PO SCH (09:35)
--- NOTE | 2018-09-20 12:51 | NUR ---
Faisal from [employer] called, states he will have a rep. come and interrogate the pacemaker later this afternoon, sometime after 2:00pm.
[2018-09-20] MEDS ORDERED: FUROSEMIDE 10 MG/ML 4ML VIAL ONE (17:19)
[2018-09-20] MEDS ORDERED: FUROSEMIDE 10 MG/ML 4ML VIAL IV STA (17:39)
[2018-09-20] MEDS ORDERED: POTASSIUM CHLORIDE 20 MEQ ERTAB PO SCH (18:15)
[2018-09-20] MEDS ORDERED: SIMVASTATIN 20 MG TABLET PO SCH (21:00)
[2018-09-20] MEDS ORDERED: FOLIC ACID 1 MG TABLET PO SCH (21:00)
[2018-09-21] VITALS (7 sets, daily range): BP systolic 130–152; BP diastolic 66–84
[2018-09-21 04:47] LABS: HEMATOCRIT 28.5 % (36-48); MEAN CORPUSCULAR HEMOGLOBIN 28.1 pg (27.0-33.0); MEAN CORPUSCULAR VOLUME 85.1 fL (79-99); PLATELET COUNT (AUTO) 373 K/uL (130-400); RED BLOOD CELL COUNT(AUTO) 3.35 MIL/uL (4.00-5.50); RED CELL DISTRIBUTION WIDTH 15.1 % (11.0-15.5); WHITE BLOOD COUNT (AUTO) 8.4 K/uL (4.8-10.8)
[2018-09-21 05:16] LABS: CREATININE 1.5 mg/dL (0.5-1.5); MAGNESIUM 1.8 mg/dL (1.80-2.40); PHOSPHORUS 4.3 mg/dL (2.5-4.9)
[2018-09-21] MEDS: LEVOTHYROXINE 50 MCG TABLET PO SCH (06:22)
[2018-09-21] MEDS: INSULIN HUMULIN R 100 UNIT/ML 3ML SQ SCH ×2 (06:27→11:30)
[2018-09-21] MEDS ORDERED: LINAGLIPTIN 5 MG TABLET ONE (07:19)
[2018-09-21] MEDS ORDERED: METFORMIN HCL 500 MG TABLET ONE (07:20)
[2018-09-21] MEDS: MAGNESIUM OXIDE 400 MG TABLET PO SCH (08:22)
[2018-09-21] MEDS: FAMOTIDINE 20MG TAB 20 MG TAB PO SCH (08:22)
[2018-09-21] MEDS: CITALOPRAM 20 MG TABLET PO SCH (08:22)
[2018-09-21] MEDS: CARVEDILOL 12.5 MG TABLET PO SCH (08:23)
[2018-09-21] MEDS: PANTOPRAZOLE SODIUM 40 MG TABLET.DR PO SCH (08:23)
[2018-09-21] MEDS ORDERED: LINAGLIPTIN 5 MG TABLET PO SCH (09:00)
--- NOTE | 2018-09-21 09:00 | NUR ---
URIEL MET W PT, AAOX3, POLISH SPEAKING, W DAUGHTER, LIVES WITH FAMILY, PROVIDER SERVICE 25 RHS /WEEK, HAS WKR, NO OTHER DME, NO NEEDS , DCP HOME Addendum: 09/22/18 at 1902 by GIUSEPPE BONDS RN Amended: Links added.
[2018-09-21] MEDS ORDERED: LINA5TAB PO (13:25)
--- NOTE | 2018-09-21 15:09 | NUR ---
Diabetes Diet Education: Nutrition consult for diabetic and anemia diet education. Printed materials provided on diabetic diet. Pt's daughter and granddaughter present at bedside during education with multiple nutritional questions. Pt granddaughter one of the main caregivers states pt's current diet is liberalized at home due to poor intake however pt tends to eat healthier options than the not so healthy. Pt and family were educated on carbohydrates, portion control and carbohydrate counting. Addendum: 09/21/18 at [address] Amended: Links added.
--- NOTE | 2018-09-21 18:00 | NUR ---
DISCHARGE PATIENT GIVEN DISCHARGE INSTRUCTIONS AND EDUCATION, INCLUDING SIDE EFFECTS ON NEW PRESCRIBED AND FOLLOW UP APPOINTMENT. PATIENT AND DAUGHTER, MEDINA AT SIDE, VERBALIZED UNDERSTANDING OF ALL EDUCATION GIVEN VIA TEACH BACK. NO QUESTIONS OR CONCERNS VOICED AT THIS TIME. NO SIGNS OF DISTRESS NOTED UPON DISCHARGE. IV DISCONTINUED, CATHETER INTACT. PIPING MANAGER, DISCONTINUED, MONITOR AWARE. PATIENT LEFT WITH DAUGHTER AT SIDE TO PRIVATE CAR. ALL BELONGINGS TAKEN WITH.
== END 2018-09-21 18:37 | disposition home or self-care (01) | DRG 683 ==
LOC: EDH 16:41 → EDHIP 18:40 → 4CH 21:02
PROVIDERS: ADMIT Internal Medicine; ATTEND Internal Medicine
PROC: 30233N1 Transfusion of Nonautologous Red Blood Cells into Peripheral Vein, Percutaneous Approach (ICD-10-PCS; principal; 2018-09-19)
PROC: 4B02XSZ Measurement of Cardiac Pacemaker, External Approach (ICD-10-PCS; 2018-09-20)
DX: I12.9 Hypertensive chronic kidney disease with stage 1 through stage 4 chronic kidney disease, or unspecified chronic kidney disease (principal); N18.4 Chronic kidney disease, stage 4 (severe); D63.1 Anemia in chronic kidney disease; E11.22 Type 2 diabetes mellitus with diabetic chronic kidney disease; E78.5 Hyperlipidemia, unspecified; I25.10 Atherosclerotic heart disease of native coronary artery without angina pectoris; Z82.49 Family history of ischemic heart disease and other diseases of the circulatory system; Z83.3 Family history of diabetes mellitus; Z87.442 Personal history of urinary calculi; Z95.0 Presence of cardiac pacemaker; Z87.440 Personal history of urinary (tract) infections; Z79.84 Long term (current) use of oral hypoglycemic drugs
CPT/HCPCS: 36415; 70450; 71045; 80048; 80053; 81001; 82270; 82550; 82728; 82948; 83036; 83540; 83550; 83735; 83874; 84100; 84443; 84484; 85014; 85018; 85025; 85027; 86850; 86900; 86901; 86922; 93005; G0378; J1940; J3475; P9016

== ENCOUNTER 2019-01-08 19:48 | Observation (INO) | payer OTHER, MEDICARE ==
[~2019-01-08] VITALS: Ht 152.4 cm; Wt 75.7 kg
[~2019-01-08 19:48] MED LIST changes: -ASPI-555 PO; +CARV12.511 PO; -CARV6.25 PO; +LINA5TAB PO; +MAGN400T53 PO; -METF-446 PO; -ONDA4SOL PO
[2019-01-08] MEDS ORDERED: IPRATROPIUM/ALBUTEROL SULFATE 3 ML SOLUTION IH ONE ×2 (20:16→21:55)
[2019-01-08 20:19] LABS: BASOPHILS % (AUTO) 0.7 % (0.0-5.0); EOSINOPHILS % (AUTO) 0.8 % (0.0-8.0); HEMATOCRIT 36.5 % (36-48); MEAN CORPUSCULAR HGB CONC 33.3 g/dL (32.0-36.0); MEAN CORPUSCULAR VOLUME 93.3 fL (79-99); NEUTROPHILS % (AUTO) 85.5 % (40.0-77.0); NUCLEATED RED BLOOD CELLS 0.1 % (0.0-0.19); PLATELET COUNT (AUTO) 227 K/uL (130-400); RED BLOOD CELL COUNT(AUTO) 3.91 MIL/uL (4.00-5.50); RED CELL DISTRIBUTION WIDTH 15.5 % (11.0-15.5); WHITE BLOOD COUNT (AUTO) 14.9 K/uL (4.8-10.8)
[2019-01-08 20:27] LABS: CREATININE 1.9 mg/dL (0.5-1.5)
[2019-01-08 20:28] LABS: INR 0.97 (0.85-1.15); PARTIAL THROMBOPLASTIN TIME 24.7 SEC (26.3-35.5); PROTHROMBIN TIME 10.2 SEC (9.6-11.6)
[2019-01-08 20:34] LABS: ALBUMIN 3.2 g/dL (3.5-5.0); BILIRUBIN,TOTAL 0.5 mg/dL (0.2-1.0); TOTAL PROTEIN, SERUM 7.5 g/dL (6.0-8.3)
[2019-01-08] MEDS ORDERED: FUROSEMIDE 10 MG/ML 2ML VIAL ONE (21:54)
[2019-01-08] MEDS ORDERED: LEVOFLOXACIN 750 MG/D5W 150 ML 150 ML ONE (21:55)
[2019-01-08] MEDS ORDERED: SODIUM CHLORIDE 0.9% 10 ML VIAL IVP SCH (22:30)
[2019-01-08] MEDS: FUROSEMIDE 10 MG/ML 4ML VIAL IVP SCH (22:30)
[2019-01-08] MEDS ORDERED: ONDANSETRON HCL 4 MG/2 ML VIAL IVP PRN (22:30)
[2019-01-08] MEDS ORDERED: POTASSIUM CHLORIDE 20MEQ/100ML 100 ML IV PRN (22:30)
[2019-01-08] MEDS ORDERED: DiphenhydrAMINE HCL 50 MG/ML VIAL IVP PRN (22:30)
[2019-01-08] MEDS ORDERED: GUAIFENESIN SUGAR-FREE 100 MG/5 ML UDCUP PO PRN (22:30)
[2019-01-08] MEDS ORDERED: ACETAMINOPHEN 325 MG TAB PO PRN ×2 (22:30)
[2019-01-08] MEDS ORDERED: DIPHENHYDRAMINE HCL 25 MG CAPSULE PO PRN (22:30)
[2019-01-08] MEDS ORDERED: POTASSIUM CHLORIDE 20 MEQ ERTAB PO PRN (22:30)
[2019-01-08] MEDS ORDERED: POTASSIUM CHLORIDE 10% ELIXIR 20 MEQ/15 ML UDCUP PO PRN (22:30)
[2019-01-08] MEDS: LEVOFLOXACIN 500 MG/D5W 100 ML 100 ML IV SCH (22:30)
[2019-01-08] MEDS ORDERED: DEXTROSE 50%-WATER 50 ML DISP.SYRIN IV PRN (22:30)
[2019-01-08] MEDS ORDERED: GLUCAGON 1MG KIT 1 MG ML IM PRN (22:30)
[2019-01-08] MEDS ORDERED: LACTULOSE 20 GM/30 ML UDCUP PO PRN (22:30)
[2019-01-08] MEDS ORDERED: MAG HYDROX/AL HYDROX/SIMETH ES 30 ML SUSP UDCUP PO PRN (22:30)
[2019-01-08] MEDS ORDERED: LIDOCAINE HCL-MPF 1% 2ML VIAL IJ PRN (22:30)
[2019-01-08] MEDS ORDERED: CLONIDINE HCL 0.1 MG TABLET PO PRN (22:30)
[2019-01-08] MEDS ORDERED: GUAIFENESIN-DM 200/20 MG 10 ML PO PRN (22:30)
[2019-01-08] MEDS ORDERED: NITROGLYCERIN 0.4 MG SL TAB SL PRN (22:30)
[2019-01-08] MEDS ORDERED: ZOLPIDEM TARTRATE 5 MG TAB PO PRN (22:30)
--- NOTE | 2019-01-08 23:25 | NUR ---
PT WAS ADMITTED FROM ER VIA STRETCHER PT WAS ABLE TO WALK TO BATHROOM AND STAND TO BE WEIGHTED. DAUGHTER WITH PATIENT AND MEDS WERE RECONCILED PRIOR TO SENDING THEM HOME WITH DAUGHTER. SEE ASSESSMENT DOCUMENTATION.
[2019-01-08 23:33] VITALS: BP 148/79
[2019-01-08] MEDS ORDERED: FERR325T22 PO (23:39)
[2019-01-08] MEDS ORDERED: ESCI10TA54 PO (23:43)
[2019-01-08] MEDS ORDERED: LINA5TAB PO (23:43)
[2019-01-09 04:07] VITALS: BP 145/84
[2019-01-09] MEDS: INSULIN R PO SS2 SQ SCH ×4 (07:18→21:00)
--- NOTE | 2019-01-09 07:50 | NUR ---
ASSESSMENT PT IS AWAKE AND ALERT. DENIES CP DENIES SOB DENIES NV NO COMPLAINTS AT THIS TIME, RESTING IN BED. BREATHING PATTERN IS EVEN AND UNLABORED. CALL LIGHT WITHIN REACH.
[2019-01-09 08:11] VITALS: BP 144/70
[2019-01-09] MEDS: ASPIRIN 325MG EC TAB 325 MG TABLET.DR PO SCH (08:13)
[2019-01-09] MEDS: FUROSEMIDE 10 MG/ML 4ML VIAL IVP SCH (08:13)
[2019-01-09] MEDS ORDERED: PANTOPRAZOLE SODIUM 40 MG TABLET.DR PO SCH (09:00)
[2019-01-09 12:00] VITALS: BP 122/50
--- NOTE | 2019-01-09 12:58 | NUR ---
NICOLE PLAN VISITED WITH PATIENT. PATIENT WITH METAL FABRICATOR HELPER UNABLE TO DO IA TINO WILL CONTINUE TO FOLLOW. Addendum: 01/09/19 at 1259 by DAVID KATZ RN CM Amended: Links added.
--- NOTE | 2019-01-09 14:00 | NUR ---
STATUS DAUGHTER ARRIVED TO BEDSIDE, VERIFIED MED LIST. CONTINUED MEDS PER DR CRAMER ORDER.
[2019-01-09 16:35] VITALS: BP 136/64
--- NOTE | 2019-01-09 17:50 | NUR ---
STATUS RESTING IN BED NO COMPLAINTS. CALL LIGHT WITHIN REACH. FAMILY AT BEDSIDE.
[2019-01-09 19:29] VITALS: BP 130/69
[2019-01-09] MEDS: FERROUS SULFATE 325 MG TABLET.DR PO SCH (20:54)
[2019-01-09] MEDS: CARVEDILOL 12.5 MG TABLET PO SCH (20:55)
[2019-01-09] MEDS: FUROSEMIDE 40 MG TABLET PO SCH (20:55)
[2019-01-09] MEDS ORDERED: FOLIC ACID 1 MG TABLET PO SCH (21:00)
[2019-01-09] MEDS ORDERED: SIMVASTATIN 20 MG TABLET PO SCH (21:00)
[2019-01-09] MEDS: LEVOFLOXACIN 500 MG/D5W 100 ML 100 ML IV SCH (22:09)
[2019-01-09 23:44] VITALS: BP 146/66
[2019-01-10 04:30] VITALS: BP 127/79
[2019-01-10] MEDS: INSULIN R PO SS2 SQ SCH ×2 (06:00→11:30)
[2019-01-10] MEDS ORDERED: LEVOTHYROXINE 50 MCG TABLET PO SCH (07:30)
[2019-01-10 08:00] VITALS: BP 136/78
--- NOTE | 2019-01-10 08:00 | NUR ---
ASSESSMENT PT IS AAOX4 RESTING IN BED. DENIES CP DENIES SOB DENIES NV NO COMPLAINTS. BREATHING PATTERN IS EVEN AND UNLABORED. CALL LIGHT WITHIN REACH. ASSISTED UP TO BATHROOM, BACK TO BED.
[2019-01-10] MEDS: ASPIRIN 325MG EC TAB 325 MG TABLET.DR PO SCH (08:16)
[2019-01-10] MEDS: CARVEDILOL 12.5 MG TABLET PO SCH (08:16)
[2019-01-10] MEDS: FERROUS SULFATE 325 MG TABLET.DR PO SCH (08:16)
[2019-01-10] MEDS: FUROSEMIDE 40 MG TABLET PO SCH (08:19)
[2019-01-10] MEDS ORDERED: CITALOPRAM 20 MG TABLET PO SCH (09:00)
[2019-01-10] MEDS ORDERED: PANTOPRAZOLE SODIUM 40 MG TABLET.DR PO SCH (09:00)
[2019-01-10] MEDS ORDERED: MAGNESIUM OXIDE 400 MG TABLET PO SCH (09:00)
[2019-01-10] MEDS ORDERED: LINAGLIPTIN 5 MG TABLET PO SCH (09:00)
[2019-01-10] MEDS ORDERED: NON-FORMULARY MEDICATION 1 EACH (Escitalopram Oxalate 10 MG) PO SCH (09:00)
--- NOTE | 2019-01-10 09:20 | NUR ---
2D ECHO AT BEDSIDE
[2019-01-10 11:37] VITALS: BP 119/55
--- NOTE | 2019-01-10 12:15 | NUR ---
DR CRAMER CALLED OK TO DC PATIENT HOME. SCRIPTED FOR LASIX 40MG PO QAM 30 TABS. FOLLOW UP WEDNESDAY.
--- NOTE | 2019-01-10 12:40 | NUR ---
DISCHARGE PATIENT AND FAMILY VERBALIZE DC INSTRUCTIONS UNDERSTANDING AGREE TO TAKE MEDICATIONS ORDERED. AGREE TO FOLLOW UP WITH DR CRAMER ON WEDNESDAY. PIV REMOVED CATH TIP INTACT, TELE PACK REMOVED. ALL QUESTIONS ANSWERED.
--- NOTE | 2019-01-10 13:49 | NUR ---
DC PLAN PATIENT CHANGED TO OBSERVATION STATUS. NO NEEDS VERBALIZED BY NURSING STAFF. PATIENT DC HOME. ALREADY GONE. Addendum: 01/10/19 at 1350 by DAVID KATZ RN CM Amended: Links added.
== END 2019-01-10 12:55 | disposition home or self-care (01) ==
LOC: EDH 19:48 → INTOOBSV 21:55 → EDHIP 21:55 → 2AH 23:25
PROVIDERS: ADMIT Family Medicine; ATTEND Family Medicine
DX: R06.02 Shortness of breath (principal); I25.10 Atherosclerotic heart disease of native coronary artery without angina pectoris; E11.9 Type 2 diabetes mellitus without complications; E78.5 Hyperlipidemia, unspecified; I10 Essential (primary) hypertension; Z79.899 Other long term (current) drug therapy; Z90.710 Acquired absence of both cervix and uterus
CPT/HCPCS: 36415; 71045; 80053; 82550; 82948 ×5; 83880; 84484; 85025; 85610; 85730; 87040 ×2; 93005; 93306; 94640 ×2; 96365; 96375; 99291; G0378 ×39; J1940 ×2; J1956 ×2

== ENCOUNTER → 2019-02-20 | Outpatient (CLI) | payer OTHER, MEDICARE ==
[~2019-02-20] VITALS: Ht 162.6 cm; Wt 75.7 kg
[~2019-02-20] MED LIST changes: +FERR325T22 PO; +REGADENOSON 0.4 MG/5 ML PF SYG IVP SCH
== END | disposition home or self-care (01) ==
LOC: SHCH 08:08
PROVIDERS: ATTEND Internal Medicine Cardiovascular Disease
DX: I21.29 ST elevation (STEMI) myocardial infarction involving other sites (principal); I25.10 Atherosclerotic heart disease of native coronary artery without angina pectoris
CPT/HCPCS: 78452; 93017; 96374; A9500 ×2; J2785

== ENCOUNTER 2019-07-07 22:51 | Emergency (ER) | payer OTHER, MEDICARE ==
[~2019-07-07 22:51] MED LIST changes: -REGADENOSON 0.4 MG/5 ML PF SYG IVP SCH; +SIMV-43 PO; -SIMV20TA6 PO
[2019-07-07 23:31] LABS: BASOPHILS % (AUTO) 0.9 % (0.0-5.0); EOSINOPHILS % (AUTO) 1.9 % (0.0-8.0); HEMATOCRIT 36.6 % (36-48); LYMPHOCYTES % (AUTO) 22.8 % (21.0-51.0); MEAN CORPUSCULAR HEMOGLOBIN 32.4 pg (27.0-33.0); MEAN CORPUSCULAR HGB CONC 33.9 g/dL (32.0-36.0); MEAN CORPUSCULAR VOLUME 95.6 fL (79-99); MONOCYTES % (AUTO) 8.6 % (3.0-13.0); NEUTROPHILS % (AUTO) 64.9 % (40.0-77.0); PLATELET COUNT (AUTO) 247 K/uL (130-400); RED BLOOD CELL COUNT(AUTO) 3.83 MIL/uL (4.00-5.50); RED CELL DISTRIBUTION WIDTH 13.2 % (11.0-15.5); WHITE BLOOD COUNT (AUTO) 9.4 K/uL (4.8-10.8)
[2019-07-07] MEDS ORDERED: SODIUM CHLORIDE 0.9% 1000ML 1,000 ML IV ONE (23:33)
[2019-07-07 23:41] LABS: APPEARANCE,URINE Clear (CLEAR); BILIRUBIN,URINE Negative (NEGATIVE); COLOR,URINE Yellow (YELLOW); GLUCOSE, URINE (UA) Negative (NEGATIVE); KETONES,URINE Negative (NEGATIVE); LEUKOCYTE ESTERASE ,URINE Small (NEGATIVE); NITRATE,URINE Negative (NEGATIVE); OCCULT BLOOD,URINE Negative (NEGATIVE); PROTEIN,URINE Negative (NEGATIVE); UROBILINOGEN,URINE 0.2 mg/dL (0.2-1.0)
[2019-07-07 23:42] LABS: CREATININE 2.2 mg/dL (0.5-1.5); POTASSIUM 4.2 mmol/L (3.5-5.1)
[2019-07-07 23:47] LABS: ALBUMIN 3.2 g/dL (3.5-5.0); BILIRUBIN,TOTAL 0.3 mg/dL (0.2-1.0); TOTAL PROTEIN, SERUM 7.3 g/dL (6.0-8.3)
[2019-07-07 23:54] LABS: BACTERIA,URINE None Seen /HPF (None Seen); RBC,URINE None Seen /HPF (0-1); SQUAMOUS EPITHELIAL CELL,UR Few /HPF (0-2)
== END 2019-07-08 02:06 | disposition home or self-care (01) ==
LOC: EDH 22:51
DX: R10.30 Lower abdominal pain, unspecified (principal); I25.10 Atherosclerotic heart disease of native coronary artery without angina pectoris; E11.9 Type 2 diabetes mellitus without complications; E78.5 Hyperlipidemia, unspecified; I10 Essential (primary) hypertension; Z90.49 Acquired absence of other specified parts of digestive tract; Z90.710 Acquired absence of both cervix and uterus
CPT/HCPCS: 36415; 71045; 74176; 80053; 81001; 83605; 83690; 84484; 85025; 93005; 99285; J7030

== ENCOUNTER → 2020-02-06 | Outpatient (CLI) | payer OTHER, MEDICARE | END | disposition home or self-care (01) | LOC: SHCH 10:00 | PROVIDERS: ATTEND Internal Medicine Cardiovascular Disease | DX: I25.10 Atherosclerotic heart disease of native coronary artery without angina pectoris (principal) | CPT/HCPCS: 93306 ==

== ENCOUNTER 2020-02-13 16:07 | Inpatient (IN) | payer OTHER, MEDICARE ==
[~2020-02-13] VITALS: Ht 162.6 cm; Wt 90.1 kg
[~2020-02-13 16:07] MED LIST changes: -PANT40TA25 PO; +PANT40TA54 PO
[2020-02-13 16:38] LABS: BASOPHILS % (AUTO) 0.5 % (0.0-5.0); HEMATOCRIT 39.2 % (36-48); MEAN CORPUSCULAR HEMOGLOBIN 32.4 pg (27.0-33.0); MEAN CORPUSCULAR HGB CONC 34.2 g/dL (32.0-36.0); MEAN CORPUSCULAR VOLUME 94.9 fL (79-99); MONOCYTES % (AUTO) 8.1 % (3.0-13.0); NEUTROPHILS % (AUTO) 83.5 % (40.0-77.0); PLATELET COUNT (AUTO) 228 K/uL (130-400); RED BLOOD CELL COUNT(AUTO) 4.13 MIL/uL (4.00-5.50); RED CELL DISTRIBUTION WIDTH 13.2 % (11.0-15.5); WHITE BLOOD COUNT (AUTO) 11.7 K/uL (4.8-10.8)
[2020-02-13] MEDS ORDERED: ONDANSETRON HCL 4 MG/2 ML VIAL ONE (16:56)
[2020-02-13] MEDS ORDERED: ACETAMINOPHEN 325 MG TAB ONE (16:56)
[2020-02-13] MEDS ORDERED: SODIUM CHLORIDE 0.9% 500ML 500 ML IV ONE (16:57)
[2020-02-13 17:00] LABS: INR 0.94 (0.85-1.15); PARTIAL THROMBOPLASTIN TIME 24.3 SEC (26.3-35.5); PROTHROMBIN TIME 10.2 SEC (9.6-11.6)
[2020-02-13 17:15] LABS: CREATININE 1.9 mg/dL (0.5-1.5); POTASSIUM 3.3 mmol/L (3.5-5.1)
[2020-02-13 17:19] LABS: ALBUMIN 3.3 g/dL (3.5-5.0); BILIRUBIN,TOTAL 0.5 mg/dL (0.2-1.0); TOTAL PROTEIN, SERUM 7.5 g/dL (6.0-8.3)
[2020-02-13 17:36] LABS: APPEARANCE,URINE Clear (CLEAR); BILIRUBIN,URINE Negative (NEGATIVE); COLOR,URINE Yellow (YELLOW); GLUCOSE, URINE (UA) Negative (NEGATIVE); KETONES,URINE Negative (NEGATIVE); LEUKOCYTE ESTERASE ,URINE Negative (NEGATIVE); NITRATE,URINE Negative (NEGATIVE); OCCULT BLOOD,URINE Negative (NEGATIVE); PH,URINE 6.5 (5.0-8.0); PROTEIN,URINE Negative (NEGATIVE)
[2020-02-13] MEDS ORDERED: ENOXAPARIN SODIUM 40 MG/0.4 ML SYRINGE SQ ONE (19:03)
[2020-02-13] MEDS ORDERED: AZITHROMYCIN 500MG+NS 250ML 250 ML IV ONE (21:41)
[2020-02-13] MEDS ORDERED: CEFTRIAXONE SODIUM 1 GM ONE (21:42)
[2020-02-13] MEDS ORDERED: DEXAMETHASONE SOD PHOSPHATE 10MG/ML 1ML VIAL ONE (23:09)
[2020-02-13] MEDS ORDERED: DOXYCYCLINE 100MG+NS 250ML IV SCH (23:15)
[2020-02-13] MEDS ORDERED: ERGOCALCIFEROL (VITAMIN D2) 50,000 UNIT CAPSULE PO ONE (23:15)
[2020-02-13] MEDS ORDERED: ACETAMINOPHEN 325 MG TAB PO PRN ×2 (23:15)
[2020-02-13] MEDS ORDERED: ONDANSETRON HCL 4 MG/2 ML VIAL IV PRN (23:15)
[2020-02-13] MEDS: POTASSIUM CHLORIDE 20 MEQ ERTAB PO SCH (23:30)
[2020-02-14] MEDS ORDERED: POTASSIUM CHLORIDE 10% ELIXIR 20 MEQ/15 ML UDCUP ONE (00:29)
[2020-02-14 01:21] VITALS: BP 139/49
[2020-02-14] MEDS ORDERED: FURO40TA5 PO (01:50)
[2020-02-14] MEDS ORDERED: GLIP10TA9 PO (01:50)
[2020-02-14] MEDS ORDERED: LINA145C PO (01:50)
[2020-02-14] MEDS ORDERED: ERGOCALCIFEROL (VITAMIN D2) 50,000 UNIT CAPSULE ONE (02:48)
[2020-02-14] MEDS: DOXYCYCLINE 100MG+NS 250ML 250 ML IV SCH ×2 (02:51→13:26)
[2020-02-14 06:27] LABS: ALBUMIN 3.2 g/dL (3.5-5.0); BILIRUBIN,TOTAL 0.4 mg/dL (0.2-1.0); CREATININE 2.1 mg/dL (0.5-1.5); POTASSIUM 4.4 mmol/L (3.5-5.1); TOTAL PROTEIN, SERUM 7.6 g/dL (6.0-8.3)
[2020-02-14] MEDS: HEPARIN SODIUM 5000UNIT/ML 1ML VIAL SQ SCH ×3 (06:35→21:55)
[2020-02-14 06:42] VITALS: BP 160/65
[2020-02-14] MEDS: INSULIN HUMULIN R 100 UNIT/ML 3ML SQ SCH ×4 (06:56→21:54)
[2020-02-14 08:00] VITALS: BP 136/58
[2020-02-14] MEDS: ZINC SULFATE 220 CAPSULE PO SCH (10:04)
[2020-02-14] MEDS: ACETYLCYSTEINE 600 MG CAPSULE PO SCH ×2 (10:04→20:50)
[2020-02-14] MEDS: ASCORBIC ACID 500 MG TAB PO SCH (10:04)
[2020-02-14] MEDS: METHYLPREDNISOLONE SOD SUCC 40MG/ML 1ML IVP SCH ×3 (10:04→20:49)
[2020-02-14 12:00] VITALS: BP 146/76
[2020-02-14] MEDS: CEFTRIAXONE SODIUM 1 GM IVP SCH (13:26)
--- NOTE | 2020-02-14 14:13 | NUR ---
Called office in regards to the name of the pts pacemaker track greaser. Was informed [employer] produce the pacemakers
--- NOTE | 2020-02-14 14:25 | NUR ---
Poke with [employer] and gave them the hospital call back number and a Rep Rafael Aleman will be contacing me
--- NOTE | 2020-02-14 15:08 | NUR ---
Spoke with [employer] rep . Rep states the reading on the tele monitor is normal. The pacemaker software is programmed to monitor the CLS and thoratitic in pins of the heart. Pt in normal sinus rhythm, no complaints or distress noted by patient. Md made aware will cont to monitor
--- NOTE | 2020-02-14 15:25 | NUR ---
SPOKE W DAUGHTER MEDINA MOORE MORNING- PATIENT LIVES WITH HER, ANOTHER DAUGHTER EDMAR IS PROVIDER >20 HRS WEEK ONLY NEEDS ASSIST FOR SHOWER, HAS SHOWER CHAIR AND HOME SFE AND ACCESSIBLE, USES ROLLING WALKER FOR MOBILITY, HAS BORROWED NEBULIZER-- DCP IS [facility], DAUGHTER STATES PATIENT WAS TESTING IN DECEMBER AND IS NEGATIVE WILL BRING TEST DAUGHTER UPSET THAT PATIENT IS IN COIVD UNIT, STATES PT IS NOT COVID, CANNOT BE- ADVISED BECAUSE OF CT SCAN HAVE TO LEAVE IN COVID UNIT. DAUGHTER DROPPED OF TEST- 12/18/2019 NEGATIVE IGM IGG COVID WILL PLACE IN CHART Addendum: 02/14/20 at 1531 by GIUSEPPE BONDS RN Amended: Links added.
[2020-02-14 20:13] VITALS: BP 163/71
[2020-02-14] MEDS: AZITHROMYCIN 500MG+NS 250ML 250 ML IV SCH (20:50)
[2020-02-14 23:18] LABS: BASOPHILS % (AUTO) 0.2 % (0.0-5.0); HEMATOCRIT 37.6 % (36-48); LYMPHOCYTES % (AUTO) 5.6 % (21.0-51.0); MEAN CORPUSCULAR HEMOGLOBIN 32.9 pg (27.0-33.0); MEAN CORPUSCULAR HGB CONC 34.6 g/dL (32.0-36.0); MEAN CORPUSCULAR VOLUME 95.2 fL (79-99); MONOCYTES % (AUTO) 1.7 % (3.0-13.0); NEUTROPHILS % (AUTO) 92.1 % (40.0-77.0); PLATELET COUNT (AUTO) 217 K/uL (130-400); RED BLOOD CELL COUNT(AUTO) 3.95 MIL/uL (4.00-5.50); WHITE BLOOD COUNT (AUTO) 12.7 K/uL (4.8-10.8)
[2020-02-15] VITALS (7 sets, daily range): BP systolic 138–164; BP diastolic 65–83
[2020-02-15] MEDS: CEFTRIAXONE SODIUM 1 GM IVP SCH ×3 (01:07→22:52)
[2020-02-15] MEDS: DOXYCYCLINE 100MG+NS 250ML 250 ML IV SCH ×2 (01:10→12:20)
[2020-02-15] MEDS: POTASSIUM CHLORIDE 20 MEQ ERTAB PO SCH ×2 (01:14→22:51)
[2020-02-15] MEDS ORDERED: SODIUM CHLORIDE 0.9% 1000ML 1,000 ML IV ONE (04:19)
[2020-02-15 04:39] LABS: BASOPHILS % (AUTO) 0.1 % (0.0-5.0); HEMATOCRIT 39.1 % (36-48); LYMPHOCYTES % (AUTO) 5.6 % (21.0-51.0); MEAN CORPUSCULAR HEMOGLOBIN 31.8 pg (27.0-33.0); MEAN CORPUSCULAR HGB CONC 33.2 g/dL (32.0-36.0); MEAN CORPUSCULAR VOLUME 95.6 fL (79-99); MONOCYTES % (AUTO) 2.3 % (3.0-13.0); NEUTROPHILS % (AUTO) 91.5 % (40.0-77.0); PLATELET COUNT (AUTO) 223 K/uL (130-400); RED BLOOD CELL COUNT(AUTO) 4.09 MIL/uL (4.00-5.50); RED CELL DISTRIBUTION WIDTH 12.9 % (11.0-15.5); WHITE BLOOD COUNT (AUTO) 13.9 K/uL (4.8-10.8)
[2020-02-15 05:20] LABS: ALBUMIN 2.8 g/dL (3.5-5.0); BILIRUBIN,TOTAL 0.2 mg/dL (0.2-1.0); CREATININE 1.7 mg/dL (0.5-1.5); CRP QUANTITATIVE 89.8 mg/L (0.00-9.0); POTASSIUM 4.2 mmol/L (3.5-5.1); TOTAL PROTEIN, SERUM 7.1 g/dL (6.0-8.3)
--- NOTE | 2020-02-15 05:22 | NUR ---
Pt. c/o pain and burning at IV insertion site 20g left ac, IV d c'd new IV 20g inserted in left hand, cleaned with chlorhexidine/ flushed with normal saline, secured w/ saline lock. No s/s of redness, pain or infiltration noted, pt. voices no complaints at this time.
[2020-02-15] MEDS: HEPARIN SODIUM 5000UNIT/ML 1ML VIAL SQ SCH ×3 (06:38→22:00)
[2020-02-15] MEDS: INSULIN HUMULIN R 100 UNIT/ML 3ML SQ SCH ×5 (06:38→21:00)
[2020-02-15] MEDS: ZINC SULFATE 220 CAPSULE PO SCH (07:54)
[2020-02-15] MEDS: ACETYLCYSTEINE 600 MG CAPSULE PO SCH ×2 (07:54→22:49)
[2020-02-15] MEDS: ASCORBIC ACID 500 MG TAB PO SCH (07:54)
[2020-02-15] MEDS: METHYLPREDNISOLONE SOD SUCC 40MG/ML 1ML IVP SCH ×3 (07:56→22:50)
[2020-02-15] MEDS: VITAMIN B COMPLEX 1 CAPSULE PO SCH (12:19)
--- NOTE | 2020-02-15 15:12 | NUR ---
[facility] PLASMA DR. ARMIJO SPOKE WITH PATIENT EARLIER IN REGARDS TO BEING COVID POSTIVE AND HIS ORDER FOR PLASMA. PATIENT IS ALERT AND ORIENTED X4 IS CONSENTING TO RECEIVE THE PLASMA. I CALLED MEDINA (DAUGHTER) TO UPDATE HER ON OVERALL PATIENT STATUS AND PLAN, MEDINA IS ALSO AGREED.
[2020-02-15] MEDS: INSULIN GLARGINE 100 UNITS/ML 10 ML VIAL SQ SCH (21:00)
[2020-02-15] MEDS: AZITHROMYCIN 500MG+NS 250ML 250 ML IV SCH (22:51)
[2020-02-15] MEDS ORDERED: SODIUM CHLORIDE 0.9% 500ML 500 ML IV ONE (23:23)
[2020-02-16 03:00] VITALS: BP 123/67
[2020-02-16 05:24] LABS: BASOPHILS % (AUTO) 0.1 % (0.0-5.0); LYMPHOCYTES % (AUTO) 4.4 % (21.0-51.0); MEAN CORPUSCULAR HGB CONC 33.8 g/dL (32.0-36.0); MEAN CORPUSCULAR VOLUME 94.4 fL (79-99); MONOCYTES % (AUTO) 2.9 % (3.0-13.0); NEUTROPHILS % (AUTO) 91.9 % (40.0-77.0); PLATELET COUNT (AUTO) 232 K/uL (130-400); RED BLOOD CELL COUNT(AUTO) 4.13 MIL/uL (4.00-5.50); RED CELL DISTRIBUTION WIDTH 12.9 % (11.0-15.5); WHITE BLOOD COUNT (AUTO) 16.6 K/uL (4.8-10.8)
[2020-02-16 05:46] LABS: ALANINE AMINOTRANSFERASE 26 U/L (12-78); ALBUMIN 2.9 g/dL (3.5-5.0); ASPARTATE AMINOTRANSFERASE 22 U/L (10-37); BILIRUBIN,TOTAL 0.1 mg/dL (0.2-1.0); CARBON DIOXIDE 24 mmol/L (21-32); CHLORIDE 103 mmol/L (101-111); CREATININE 1.7 mg/dL (0.5-1.5); GLOMERULAR FILTR. RATE CALC 30 mL/min (>60); GLUCOSE,RANDOM 213 mg/dL (70-105); LACTATE DEHYDROGENASE 204 U/L (81-234); POTASSIUM 4.4 mmol/L (3.5-5.1); SODIUM SERUM 140 mmol/L (136-145); TOTAL PROTEIN, SERUM 7.4 g/dL (6.0-8.3); UREA NITROGEN, BLOOD 36 mg/dL (7-18)
[2020-02-16] MEDS: HEPARIN SODIUM 5000UNIT/ML 1ML VIAL SQ SCH ×3 (06:00→21:22)
[2020-02-16 08:00] VITALS: BP 143/91
[2020-02-16] MEDS: ZINC SULFATE 220 CAPSULE PO SCH (09:25)
[2020-02-16] MEDS: METHYLPREDNISOLONE SOD SUCC 40MG/ML 1ML IVP SCH ×3 (09:25→21:05)
[2020-02-16] MEDS: ASCORBIC ACID 500 MG TAB PO SCH (09:25)
[2020-02-16] MEDS: VITAMIN B COMPLEX 1 CAPSULE PO SCH (09:25)
[2020-02-16] MEDS: INSULIN HUMULIN R 100 UNIT/ML 3ML SQ SCH ×7 (09:25→21:21)
[2020-02-16] MEDS: ACETYLCYSTEINE 600 MG CAPSULE PO SCH ×2 (09:25→21:06)
[2020-02-16 12:00] VITALS: BP 156/79
[2020-02-16] MEDS: CEFTRIAXONE SODIUM 1 GM IVP SCH ×2 (12:50→22:48)
[2020-02-16] MEDS: DOXYCYCLINE 100MG+NS 250ML 250 ML IV SCH ×2 (12:54→13:00)
[2020-02-16 16:00] VITALS: BP 155/87
[2020-02-16 19:24] VITALS: BP 141/71
[2020-02-16] MEDS: INSULIN GLARGINE 100 UNITS/ML 10 ML VIAL SQ SCH (21:18)
[2020-02-16] MEDS: POTASSIUM CHLORIDE 20 MEQ ERTAB PO SCH (22:48)
[2020-02-16 23:42] VITALS: BP 142/96
[2020-02-17 03:47] VITALS: BP 157/81
[2020-02-17] MEDS: DOXYCYCLINE 100MG+NS 250ML 250 ML IV SCH ×2 (06:07→13:27)
[2020-02-17] MEDS: HEPARIN SODIUM 5000UNIT/ML 1ML VIAL SQ SCH ×3 (06:30→21:28)
[2020-02-17] MEDS: INSULIN HUMULIN R 100 UNIT/ML 3ML SQ SCH ×7 (06:31→21:26)
[2020-02-17] MEDS: ACETYLCYSTEINE 600 MG CAPSULE PO SCH ×2 (08:35→21:00)
[2020-02-17] MEDS: ZINC SULFATE 220 CAPSULE PO SCH (08:35)
[2020-02-17] MEDS: ASCORBIC ACID 500 MG TAB PO SCH (08:35)
[2020-02-17] MEDS: VITAMIN B COMPLEX 1 CAPSULE PO SCH (08:35)
[2020-02-17] MEDS: METHYLPREDNISOLONE SOD SUCC 40MG/ML 1ML IVP SCH ×3 (08:39→21:01)
[2020-02-17 09:15] VITALS: BP 147/87
[2020-02-17 12:00] VITALS: BP 161/85
[2020-02-17] MEDS: CEFTRIAXONE SODIUM 1 GM IVP SCH ×2 (12:15→23:39)
[2020-02-17 16:00] VITALS: BP 154/87
[2020-02-17] MEDS ORDERED: INSULIN HUMULIN R 100 UNIT/ML 3ML SQ ONE (16:45)
[2020-02-17 19:00] VITALS: BP 156/93
[2020-02-17] MEDS: INSULIN GLARGINE 100 UNITS/ML 10 ML VIAL SQ SCH (21:27)
[2020-02-17] MEDS: POTASSIUM CHLORIDE 20 MEQ ERTAB PO SCH (21:59)
[2020-02-17 23:00] VITALS: BP 156/93
[2020-02-18] MEDS: DOXYCYCLINE 100MG+NS 250ML 250 ML IV SCH ×2 (00:21→13:01)
[2020-02-18 03:00] VITALS: BP 152/92
[2020-02-18 06:17] LABS: BASOPHILS % (AUTO) 0.1 % (0.0-5.0); HEMATOCRIT 41.9 % (36-48); MEAN CORPUSCULAR HEMOGLOBIN 32.7 pg (27.0-33.0); MEAN CORPUSCULAR HGB CONC 34.8 g/dL (32.0-36.0); MEAN CORPUSCULAR VOLUME 93.7 fL (79-99); MONOCYTES % (AUTO) 3.9 % (3.0-13.0); NEUTROPHILS % (AUTO) 88.8 % (40.0-77.0); PLATELET COUNT (AUTO) 255 K/uL (130-400); RED BLOOD CELL COUNT(AUTO) 4.47 MIL/uL (4.00-5.50); RED CELL DISTRIBUTION WIDTH 12.5 % (11.0-15.5); WHITE BLOOD COUNT (AUTO) 14.6 K/uL (4.8-10.8)
[2020-02-18 06:30] LABS: ALANINE AMINOTRANSFERASE 38 U/L (12-78); ALBUMIN 2.8 g/dL (3.5-5.0); ASPARTATE AMINOTRANSFERASE 26 U/L (10-37); BILIRUBIN,TOTAL 0.2 mg/dL (0.2-1.0); CARBON DIOXIDE 24 mmol/L (21-32); CHLORIDE 102 mmol/L (101-111); CREATININE 1.7 mg/dL (0.5-1.5); GLOMERULAR FILTR. RATE CALC 30 mL/min (>60); GLUCOSE,RANDOM 204 mg/dL (70-105); LACTATE DEHYDROGENASE 224 U/L (81-234); POTASSIUM 4.2 mmol/L (3.5-5.1); SODIUM SERUM 138 mmol/L (136-145); TOTAL PROTEIN, SERUM 7.4 g/dL (6.0-8.3); UREA NITROGEN, BLOOD 44 mg/dL (7-18)
[2020-02-18] MEDS: HEPARIN SODIUM 5000UNIT/ML 1ML VIAL SQ SCH ×3 (06:43→23:31)
[2020-02-18] MEDS: INSULIN HUMULIN R 100 UNIT/ML 3ML SQ SCH ×7 (06:45→21:01)
[2020-02-18 07:20] VITALS: BP 157/81
--- NOTE | 2020-02-18 08:21 | NUR ---
PT'S FAMILY REQUESTING INFORMATION ABOUT PT STATUS. REDIRECTED TO DESIGNATED LEAD REFINERY SUPERVISOR (MEDINA). FAMILY MEMBER STATED THE LEAD REFINERY SUPERVISOR DOESN'T SHARE INFORMATION. THIS RN EDUCATED FAMILY MEMBER ABOUT PATIENT CARE VS. ANSWERING MULTIPLE PHONE CALLS.
[2020-02-18] MEDS: VITAMIN B COMPLEX 1 CAPSULE PO SCH (09:19)
[2020-02-18] MEDS: METHYLPREDNISOLONE SOD SUCC 40MG/ML 1ML IVP SCH ×3 (09:19→20:58)
[2020-02-18] MEDS: ZINC SULFATE 220 CAPSULE PO SCH (09:19)
[2020-02-18] MEDS: ACETYLCYSTEINE 600 MG CAPSULE PO SCH ×2 (09:19→20:49)
[2020-02-18] MEDS: ASCORBIC ACID 500 MG TAB PO SCH (10:02)
[2020-02-18 11:00] VITALS: BP 147/74
[2020-02-18] MEDS: CEFTRIAXONE SODIUM 1 GM IVP SCH ×2 (12:54→23:33)
[2020-02-18 16:00] VITALS: BP 149/76
[2020-02-18 19:55] VITALS: BP 151/83
[2020-02-18] MEDS: INSULIN GLARGINE 100 UNITS/ML 10 ML VIAL SQ SCH (21:03)
[2020-02-18] MEDS: POTASSIUM CHLORIDE 20 MEQ ERTAB PO SCH (23:33)
[2020-02-19] VITALS (8 sets, daily range): BP systolic 140–176; BP diastolic 72–99
[2020-02-19] MEDS: DOXYCYCLINE 100MG+NS 250ML 250 ML IV SCH ×2 (01:30→12:53)
[2020-02-19 05:33] LABS: BASOPHILS % (AUTO) 0.3 % (0.0-5.0); EOSINOPHILS % (AUTO) 0.7 % (0.0-8.0); HEMATOCRIT 43.2 % (36-48); LYMPHOCYTES % (AUTO) 5.7 % (21.0-51.0); MEAN CORPUSCULAR HEMOGLOBIN 32.3 pg (27.0-33.0); MEAN CORPUSCULAR HGB CONC 34.7 g/dL (32.0-36.0); MEAN CORPUSCULAR VOLUME 93.1 fL (79-99); MONOCYTES % (AUTO) 3.6 % (3.0-13.0); NEUTROPHILS % (AUTO) 87.6 % (40.0-77.0); PLATELET COUNT (AUTO) 203 K/uL (130-400); RED BLOOD CELL COUNT(AUTO) 4.64 MIL/uL (4.00-5.50); RED CELL DISTRIBUTION WIDTH 12.9 % (11.0-15.5); WHITE BLOOD COUNT (AUTO) 15.6 K/uL (4.8-10.8)
[2020-02-19 06:10] LABS: ALANINE AMINOTRANSFERASE 52 U/L (12-78); ALBUMIN 2.8 g/dL (3.5-5.0); ASPARTATE AMINOTRANSFERASE 27 U/L (10-37); BILIRUBIN,TOTAL 0.2 mg/dL (0.2-1.0); CARBON DIOXIDE 21 mmol/L (21-32); CHLORIDE 102 mmol/L (101-111); CREATININE 1.7 mg/dL (0.5-1.5); GLOMERULAR FILTR. RATE CALC 30 mL/min (>60); GLUCOSE,RANDOM 211 mg/dL (70-105); LACTATE DEHYDROGENASE 263 U/L (81-234); POTASSIUM 4.6 mmol/L (3.5-5.1); SODIUM SERUM 138 mmol/L (136-145); TOTAL PROTEIN, SERUM 7.5 g/dL (6.0-8.3); UREA NITROGEN, BLOOD 47 mg/dL (7-18)
[2020-02-19] MEDS: HEPARIN SODIUM 5000UNIT/ML 1ML VIAL SQ SCH ×3 (06:48→20:04)
[2020-02-19] MEDS: INSULIN HUMULIN R 100 UNIT/ML 3ML SQ SCH ×7 (07:30→20:06)
[2020-02-19] MEDS: VITAMIN B COMPLEX 1 CAPSULE PO SCH (10:52)
[2020-02-19] MEDS: ACETYLCYSTEINE 600 MG CAPSULE PO SCH ×2 (10:52→20:03)
[2020-02-19] MEDS: METHYLPREDNISOLONE SOD SUCC 40MG/ML 1ML IVP SCH ×3 (10:52→20:24)
[2020-02-19] MEDS: ZINC SULFATE 220 CAPSULE PO SCH (10:52)
[2020-02-19] MEDS: ASCORBIC ACID 500 MG TAB PO SCH (10:52)
[2020-02-19] MEDS: CEFTRIAXONE SODIUM 1 GM IVP SCH ×2 (10:52→22:29)
[2020-02-19] MEDS: GUAIFENESIN-DM 200/20 MG 10 ML PO PRN ×2 (12:52→20:03)
[2020-02-19] MEDS: INSULIN GLARGINE 100 UNITS/ML 10 ML VIAL SQ SCH (20:05)
[2020-02-19] MEDS: POTASSIUM CHLORIDE 20 MEQ ERTAB PO SCH (22:30)
[2020-02-20] MEDS: DOXYCYCLINE 100MG+NS 250ML 250 ML IV SCH ×2 (00:42→14:41)
[2020-02-20] MEDS: HEPARIN SODIUM 5000UNIT/ML 1ML VIAL SQ SCH ×3 (04:15→21:40)
[2020-02-20 05:23] LABS: BASOPHILS % (AUTO) 0.5 % (0.0-5.0); LYMPHOCYTES % (AUTO) 5.1 % (21.0-51.0); MEAN CORPUSCULAR HEMOGLOBIN 32.7 pg (27.0-33.0); MEAN CORPUSCULAR HGB CONC 35.1 g/dL (32.0-36.0); MEAN CORPUSCULAR VOLUME 93.1 fL (79-99); MONOCYTES % (AUTO) 3.2 % (3.0-13.0); NEUTROPHILS % (AUTO) 87.2 % (40.0-77.0); PLATELET COUNT (AUTO) 243 K/uL (130-400); RED BLOOD CELL COUNT(AUTO) 4.62 MIL/uL (4.00-5.50); RED CELL DISTRIBUTION WIDTH 13.2 % (11.0-15.5); WHITE BLOOD COUNT (AUTO) 19.5 K/uL (4.8-10.8)
[2020-02-20 05:51] LABS: ALANINE AMINOTRANSFERASE 45 U/L (12-78); ALBUMIN 2.7 g/dL (3.5-5.0); BILIRUBIN,TOTAL 0.3 mg/dL (0.2-1.0); CARBON DIOXIDE 18 mmol/L (21-32); CHLORIDE 104 mmol/L (101-111); CREATININE 1.7 mg/dL (0.5-1.5); GLOMERULAR FILTR. RATE CALC 30 mL/min (>60); GLUCOSE,RANDOM 171 mg/dL (70-105); LACTATE DEHYDROGENASE 276 U/L (81-234); POTASSIUM 5.1 mmol/L (3.5-5.1); SODIUM SERUM 137 mmol/L (136-145); TOTAL PROTEIN, SERUM 7.1 g/dL (6.0-8.3); UREA NITROGEN, BLOOD 46 mg/dL (7-18)
[2020-02-20 05:57] LABS: ASPARTATE AMINOTRANSFERASE 23 U/L (10-37)
[2020-02-20] MEDS: INSULIN HUMULIN R 100 UNIT/ML 3ML SQ SCH ×7 (06:13→21:38)
[2020-02-20 06:31] VITALS: BP 162/102
[2020-02-20 08:00] VITALS: BP 162/98
[2020-02-20] MEDS: ASCORBIC ACID 500 MG TAB PO SCH (08:40)
[2020-02-20] MEDS: METHYLPREDNISOLONE SOD SUCC 40MG/ML 1ML IVP SCH ×3 (08:40→21:32)
[2020-02-20] MEDS: VITAMIN B COMPLEX 1 CAPSULE PO SCH (08:40)
[2020-02-20] MEDS: ZINC SULFATE 220 CAPSULE PO SCH (08:40)
[2020-02-20] MEDS: ACETYLCYSTEINE 600 MG CAPSULE PO SCH ×2 (08:41→21:30)
--- NOTE | 2020-02-20 11:07 | NUR ---
DC PLAN DR. SHEIKH CALLED SAID THAT RECOMMENDING SNF VS HOME. CALLED ALL THREE NUMBERS ON FACE SHEET. LEFT MESSAGE FOR [facility] THE OTHER TWO HAD NO ROOM LEFT. MEDINA JOSEFINA CALLED BACK SAID NEEDS TO ASK OTHER FAMILY FOR PLAN OF DC. WILL CALL ME BACK. LET MD KNOW. ALSO OF ELEVATED WBC AND B/P. Addendum: 02/20/20 at 1111 by DAVID KATZ RN CM Amended: Links added.
[2020-02-20 12:00] VITALS: BP 163/106
--- NOTE | 2020-02-20 12:28 | NUR ---
DC PLAN SPOKE TO DR. SHEIKH ASKED TO CALL FAMILY REGARDING NEW DC PLAN. SPOKE TO MULTIPLE DAUGHTERS FINALLY DECIDED ON [facility]. GOT DEJUAN OVER THE PHONE JOSHUA SECOND WITNESS. INFO SENT TO [facility]. PENDING COVID RETEST AND PT LUZ MARIAAL. Addendum: 02/20/20 at 1234 by DAVID KATZ RN CM Amended: Links added.
[2020-02-20] MEDS: CEFTRIAXONE SODIUM 1 GM IVP SCH ×2 (14:41→23:30)
[2020-02-20] MEDS: CARVEDILOL 12.5 MG TABLET PO SCH ×2 (14:42→21:31)
[2020-02-20] MEDS: FUROSEMIDE 40 MG TABLET PO SCH (14:42)
[2020-02-20 20:44] VITALS: BP 143/82
[2020-02-20] MEDS: SIMVASTATIN 20 MG TABLET PO SCH (21:30)
[2020-02-20] MEDS: FOLIC ACID 1 MG TABLET PO SCH (21:30)
[2020-02-20] MEDS: FERROUS SULFATE 325 MG TABLET.DR PO SCH (21:30)
[2020-02-20] MEDS: INSULIN GLARGINE 100 UNITS/ML 10 ML VIAL SQ SCH (21:36)
[2020-02-20] MEDS: POTASSIUM CHLORIDE 20 MEQ ERTAB PO SCH (21:46)
[2020-02-20 23:30] VITALS: BP 126/77
[2020-02-21] MEDS: DOXYCYCLINE 100MG+NS 250ML 250 ML IV SCH ×2 (01:00→13:00)
[2020-02-21 04:42] VITALS: BP 117/81
[2020-02-21] MEDS: INSULIN HUMULIN R 100 UNIT/ML 3ML SQ SCH ×7 (06:58→22:29)
[2020-02-21] MEDS: HEPARIN SODIUM 5000UNIT/ML 1ML VIAL SQ SCH ×3 (07:00→22:05)
[2020-02-21] MEDS: LEVOTHYROXINE 50 MCG TABLET PO SCH (07:30)
[2020-02-21 08:30] VITALS: BP 131/80
[2020-02-21] MEDS: ZINC SULFATE 220 CAPSULE PO SCH (09:09)
[2020-02-21] MEDS: LINAGLIPTIN 5 MG TABLET PO SCH (09:09)
[2020-02-21] MEDS: VITAMIN B COMPLEX 1 CAPSULE PO SCH (09:09)
[2020-02-21] MEDS: ASCORBIC ACID 500 MG TAB PO SCH (09:10)
[2020-02-21] MEDS: METHYLPREDNISOLONE SOD SUCC 40MG/ML 1ML IVP SCH ×3 (09:10→22:00)
[2020-02-21] MEDS: FERROUS SULFATE 325 MG TABLET.DR PO SCH ×2 (09:11→22:02)
[2020-02-21] MEDS: PANTOPRAZOLE SODIUM 40 MG TABLET.DR PO SCH (09:11)
[2020-02-21] MEDS: ACETYLCYSTEINE 600 MG CAPSULE PO SCH ×2 (09:11→22:03)
[2020-02-21] MEDS: FUROSEMIDE 40 MG TABLET PO SCH ×2 (09:12→09:13)
[2020-02-21] MEDS: CARVEDILOL 12.5 MG TABLET PO SCH ×3 (09:13→22:02)
[2020-02-21] MEDS: CEFTRIAXONE SODIUM 1 GM IVP SCH ×2 (11:30→22:24)
[2020-02-21 11:57] VITALS: BP 106/75
--- NOTE | 2020-02-21 13:11 | NUR ---
NICOLE PLAN COVID RESULTS BACK STILL POSITIVE. SPOKE TO LAURE AT [facility] SAID CAN NOT ACCEPT. CALLED BOTH DAUGHTERS TO LET THEM KNOW ONLY MEDINA ANSWERED. SAID WILL GET BACK TO ME WITH WHICH FACILITY THEY WOULD LIKE FROM AVAILABLE FACILITIES. Addendum: 02/21/20 at 1313 by DAVID KATZ RN CM Amended: Links added.
[2020-02-21 17:30] VITALS: BP 116/71
[2020-02-21 20:41] VITALS: BP 110/65
[2020-02-21] MEDS: FOLIC ACID 1 MG TABLET PO SCH (22:02)
[2020-02-21] MEDS: SIMVASTATIN 20 MG TABLET PO SCH (22:03)
[2020-02-21] MEDS: INSULIN GLARGINE 100 UNITS/ML 10 ML VIAL SQ SCH (22:25)
[2020-02-21] MEDS: POTASSIUM CHLORIDE 20 MEQ ERTAB PO SCH (23:16)
[2020-02-22] VITALS (7 sets, daily range): BP systolic 108–140; BP diastolic 53–95
[2020-02-22] MEDS: DOXYCYCLINE 100MG+NS 250ML 250 ML IV SCH ×2 (00:56→12:20)
[2020-02-22 06:34] LABS: INR 0.92 (0.85-1.15)
--- NOTE | 2020-02-22 06:52 | NUR ---
Held patient am dose of Heparin until PT/INR comes back. Last night pt. bleeding from IV, flushed with 10 ml of normal saline, IV intact no c/o pain no signs of swelling, redness noted. Pt. voices no concerns
[2020-02-22] MEDS: INSULIN HUMULIN R 100 UNIT/ML 3ML SQ SCH ×7 (07:30→20:20)
[2020-02-22] MEDS: ASCORBIC ACID 500 MG TAB PO SCH (07:56)
[2020-02-22] MEDS: ACETYLCYSTEINE 600 MG CAPSULE PO SCH ×2 (07:56→20:13)
[2020-02-22] MEDS: PANTOPRAZOLE SODIUM 40 MG TABLET.DR PO SCH (07:56)
[2020-02-22] MEDS: LINAGLIPTIN 5 MG TABLET PO SCH (07:56)
[2020-02-22] MEDS: ZINC SULFATE 220 CAPSULE PO SCH (07:56)
[2020-02-22] MEDS: LEVOTHYROXINE 50 MCG TABLET PO SCH (07:56)
[2020-02-22] MEDS: FERROUS SULFATE 325 MG TABLET.DR PO SCH ×2 (07:56→20:15)
[2020-02-22] MEDS: VITAMIN B COMPLEX 1 CAPSULE PO SCH (07:56)
[2020-02-22] MEDS: FUROSEMIDE 40 MG TABLET PO SCH ×2 (07:56→11:30)
[2020-02-22] MEDS: METHYLPREDNISOLONE SOD SUCC 40MG/ML 1ML IVP SCH ×3 (07:57→20:15)
[2020-02-22] MEDS: CARVEDILOL 12.5 MG TABLET PO SCH ×3 (07:59→20:15)
[2020-02-22] MEDS: CEFTRIAXONE SODIUM 1 GM IVP SCH ×2 (12:03→22:44)
[2020-02-22] MEDS: HEPARIN SODIUM 5000UNIT/ML 1ML VIAL SQ SCH ×2 (13:38→22:19)
--- NOTE | 2020-02-22 14:35 | NUR ---
THIS NURSE ASSISTED PT. BACK TO BED FROM CHAIR AT BEDSIDE. CALL LIGHT WITHIN REACH, VERBALIZED ABILITY TO USE. BED LOW, SIDE RAILS UP X3. BLINDS OPEN.
[2020-02-22] MEDS: GUAIFENESIN-DM 200/20 MG 10 ML PO PRN (14:55)
--- NOTE | 2020-02-22 15:59 | NUR ---
RESTING IN BED WITH EYES CLOSED. HOB AT 30 DEGREES. RESP.'S EVEN AND UNLABORED. CALL LIGHT WITHIN REACH.
[2020-02-22] MEDS: SIMVASTATIN 20 MG TABLET PO SCH (20:14)
[2020-02-22] MEDS: FOLIC ACID 1 MG TABLET PO SCH (20:15)
[2020-02-22] MEDS: INSULIN GLARGINE 100 UNITS/ML 10 ML VIAL SQ SCH (20:19)
[2020-02-22] MEDS: POTASSIUM CHLORIDE 20 MEQ ERTAB PO SCH (22:45)
[2020-02-23] MEDS: DOXYCYCLINE 100MG+NS 250ML 250 ML IV SCH (01:43)
[2020-02-23 03:00] VITALS: BP 144/88
[2020-02-23] MEDS: HEPARIN SODIUM 5000UNIT/ML 1ML VIAL SQ SCH (05:24)
[2020-02-23] MEDS: LEVOTHYROXINE 50 MCG TABLET PO SCH ×2 (07:07→08:35)
[2020-02-23] MEDS: INSULIN HUMULIN R 100 UNIT/ML 3ML SQ SCH ×4 (07:30→12:13)
[2020-02-23 07:58] VITALS: BP 146/75
[2020-02-23] MEDS: METHYLPREDNISOLONE SOD SUCC 40MG/ML 1ML IVP SCH (08:34)
[2020-02-23] MEDS: ASCORBIC ACID 500 MG TAB PO SCH (08:34)
[2020-02-23] MEDS: LINAGLIPTIN 5 MG TABLET PO SCH (08:34)
[2020-02-23] MEDS: PANTOPRAZOLE SODIUM 40 MG TABLET.DR PO SCH (08:35)
[2020-02-23] MEDS: ACETYLCYSTEINE 600 MG CAPSULE PO SCH (08:35)
[2020-02-23] MEDS: FERROUS SULFATE 325 MG TABLET.DR PO SCH (08:35)
[2020-02-23] MEDS: CARVEDILOL 12.5 MG TABLET PO SCH (08:36)
[2020-02-23] MEDS: FUROSEMIDE 40 MG TABLET PO SCH (08:36)
[2020-02-23] MEDS: VITAMIN B COMPLEX 1 CAPSULE PO SCH (08:36)
[2020-02-23] MEDS: ZINC SULFATE 220 CAPSULE PO SCH (08:53)
[2020-02-23] MEDS: CEFTRIAXONE SODIUM 1 GM IVP SCH (11:22)
--- NOTE | 2020-02-23 11:30 | NUR ---
REPORT CALLED TO [facility] GIVEN TO TAM DAIGLE
--- NOTE | 2020-02-23 11:35 | NUR ---
CALLED DAUGHTER MEDINA WITH UPDATE AND THAT PATIENT WOULD BE TRANSFERRING TO [facility] [place] TODAY FOR REHAB, ALL QUESTIONS ANSWERED
[2020-02-23 12:37] VITALS: BP 146/73
--- NOTE | 2020-02-23 14:28 | NUR ---
DC PLAN TRYING TO GET COVID RESULTS FOR SEVERAL DAY. GOT RESULTS BACK. AFTER TALKING TO FAMILY AND FACILITY. FINAL RESULT IS [facility] IN [place]. GOING TO [facility] BUT MARIE[facility]A TEAGUE SAID NO MORE COVID POSITIVE PATIENTS AT [facility]. PATIENT WILL NEED AMBULANCE TRANSFER FOR WEAKNESS. PATIENT WAS ABLE TO USE WALKER FOR AMBULATION PRIOR TO ADMISSION. COVID FORM SENT, [facility] SENT, EMS FORM IN CHART. LET NURSE AND MD KNOW OF ACCEPTANCE. Addendum: 02/23/20 at 1433 by DAVID KATZ RN CM Amended: Links added.
--- NOTE | 2020-02-23 14:30 | NUR ---
EMS HERE FOR TRANSFER/ TO [place], ALL PERSONNEL CLOTHING GIVEN WITH PATIENT
== END 2020-02-23 14:20 | DRG 177 ==
LOC: EDH 16:07 → EDHIP 23:13 → 4AH 02-14 00:45 → 2DH 02-15 18:09
PROVIDERS: ADMIT Internal Medicine; ATTEND Internal Medicine
PROC: XW13325 Transfusion of Convalescent Plasma (Nonautologous) into Peripheral Vein, Percutaneous Approach, New Technology Group 5 (ICD-10-PCS; principal; 2020-02-15)
DX: U07.1 COVID-19 (principal); J96.01 Acute respiratory failure with hypoxia; J12.89 Other viral pneumonia; I45.2 Bifascicular block; N28.9 Disorder of kidney and ureter, unspecified; E87.6 Hypokalemia; E11.9 Type 2 diabetes mellitus without complications; E78.5 Hyperlipidemia, unspecified; I25.10 Atherosclerotic heart disease of native coronary artery without angina pectoris; Z95.0 Presence of cardiac pacemaker; I50.9 Heart failure, unspecified; I11.0 Hypertensive heart disease with heart failure; R53.81 Other malaise; I48.91 Unspecified atrial fibrillation
CPT/HCPCS: 36415; 36430; 70450; 71045; 71250; 80053; 81003; 82550; 82728; 82948; 83605; 83615; 84145; 84484; 85025; 85378; 85610; 85730; 86140; 86850; 86900; 86901; 86927; 87040; 87426; 87804; 93005; 93970; 97039; G0378; J0456; J0696; J1100; J1644; J1650; J1815; J2405; J2920; J3490; J7030; J7040; U0003